=== PATIENT | female | born 1975 | race Caucasian/White ===

== ENCOUNTER 2019-10-13 05:42 | Emergency (ER) | payer OTHER, SELFPAY ==
[2019-10-13 05:50] VITALS: BP 132/70; PULSE 95; RESP 20; TEMP 36.6; O2SAT 97
--- NOTE | 2019-10-13 06:10 | ED.HA ---
HPI - Headache General Chief Complaint: Headache Stated Complaint: Headache Source: patient Mode of arrival: ambulatory Limitations: no limitations History of Present Illness HPI Narrative: This is a 44-year-old female that presents with a headache typical migraine she has history of migraines is throbbing mainly on the left frontal and posterior throbbing in nature with nausea no vomiting has been going on last 5 days. Patient has not had a migraine in quite a while, patient has a history of diabetes pretty well controlled. There is no focal findings has no blurry vision no chest pain no shortness of breath no abdominal pain no dysuria. MD elicited complaint: headache and migraine Onset (ago): day(s) Onset description: gradually Location: left and diffuse Severity: moderate Pain scale (0-10): 6 Quality & Timing: throbbing and similar to previous headaches Exacerbating factors: light and noise Relieving factors: rest and dark room Associated symptoms: nausea, photophobia and sensitivity to sound Related Data Home Medications Medication Instructions Recorded Confirmed ciprofloxacin HCl 250 mg PO BID 10/13/19 10/13/19 fluconazole 150 mg PO DAILY 10/13/19 10/13/19 levothyroxine 200 mcg PO DAILY 10/13/19 10/13/19 metformin 500 mg PO BID 10/13/19 10/13/19 Allergies Allergy/AdvReac Type Severity Reaction Status Date / Time adhesive tape Allergy Unknown RASH Verified 12/04/10 11:56 diphenhydramine Allergy Unknown Verified 11/18/10 10:28 sumatriptan Allergy Unknown Verified 11/18/10 10:28 SUMATRIPTAN SUCCINATE Allergy Severe SEVERE Uncoded 12/02/10 14:12 CHEST PAIN, RACING HEART RATE DIPHENHYDRAMINE HCL Allergy Uncoded 09/28/10 19:23 Review of Systems Review of Systems: All systems reviewed & are unremarkable except as noted in HPI and below PMFSH Past Medical History Medical History Diabetes mellitus Migraine Family History Family History Mother Family history of diabetes mellitus in first degree relative Family history of heart disease in male family member before age 55 Sibling Family history of diabetes mellitus in first degree relative Social History Social History Smoking status: Former smoker Alcohol intake: current Exam Const: General: no acute distress and alert Orientation/consciousness: patient oriented x3 HENMT: Head: normal to inspection Eyes: Conjunctivae: conjunctivae normal Pupils: Equal, round and reactive pupils present EOM: EOMs intact bilaterally Direct Ophthalmoscopy: photophobia Neck: Neck: normal visual inspection, no lymphadenopathy and no meningeal signs Chest: Chest palpation & inspection: normal inspection of the chest Resp: Effort & Inspection: normal respiratory effort Auscultation: clear to auscultation bilaterally Cardio: Rate: regular rate Rhythm: regular rhythm GI: GI Palp: Yes Soft to palpation Percussion: Yes normal to percussion : General: Yes no CVA tenderness Skin: General skin exam: normal color Rashes: no rashes Neuro: General: patient oriented x3 Extrem: General: normal to inspection Psych: Appearance: grossly normal Mental Status: mental status grossly normal Course Course Emergency Course: Toradol IM was administered along with ODT Zofran patient symptoms have improved. Advised to follow-up primary care physician if symptoms persist. Critical Care Time Critical Care Time Critical Care Time: No Discharge Plan Discharge Clinical Impression: Migraine Patient Disposition: Home, Self-Care Condition: Stable Instructions: Antibiotic Form, Migraine Headache (ED) Additional Instructions: Take medicine as prescribed and follow-up with primary care physician if symptoms persist. Prescriptions: New ondansetron HCl [Zofran] 4
[2019-10-13] MEDS: ONDANSETRON HCL ODT 4 MG TABLET PO (06:20)
[2019-10-13] MEDS: KETOROLAC (*BKC) 60 MG/2 ML VIAL IM (06:20)
== END 2019-10-13 06:40 | disposition home or self-care (01) ==
PROVIDERS: Emergency Provider Emergency Medicine; PCP Internal Medicine
DX: G43.909 Migraine, unspecified, not intractable, without status migrainosus (principal)
CPT/HCPCS: 96372; 99283; A9270; J1885

== ENCOUNTER 2020-01-21 13:25 | Inpatient (IN) | payer OTHER, SELFPAY ==
--- NOTE | ~2020-01-21 | CT_ITS ---
EXAMINATION: CT chest abdomen pelvis w con DATE: 01/22/2020 16:25 INDICATION: Shortness of breath. Chest pain. Nausea. TECHNIQUE: Computed tomography (CT) of the chest, abdomen, and pelvis was performed with 100 mL Omnip aque 350 intravenous contrast. Automated exposure control and iterative reconstruction technique were employed. The dose-length product was 1811.40 mGy-cm. COMPARISON: CT abdomen and pelvis 11/12/2010 FINDINGS: CHEST CT: There are patchy airspace and groundglass opacities in all lobes. There is mild scarring in paraspina l right lower lobe. No pleural effusion. The heart size is normal. No pericardial effusion. ABDOMEN/PELVIS CT: The liver is normal. There are changes of cholecystectomy. There is chronic mild splenomegaly measuri ng 16.1 cm, likely secondary to obesity. The pancreas, adrenal glands, and kidneys are normal. There are no dilated loops of bowel. The appendix is normal. There are no pathologically enlarged lymph nod es. There is no free intraperitoneal fluid. There is mild thoracolumbar spondylosis. IMPRESSION: 1. Diffuse lung disease, consistent with pneumonia such as COVID-19 pneumonia. Reviewed, dictated and finalized at location A. 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
--- NOTE | ~2020-01-21 | XR_ITS ---
EXAMINATION: XR chest 1V portable DATE: 01/21/2020 14:37 INDICATION: Cough and flulike symptoms TECHNIQUE: frontal view of the chest was obtained. COMPARISON: Chest radiograph dated 02/26/2013 FINDINGS: Scattered subtle patchy bilateral airspace opacities. No pleural effusion or pneumothorax. Prominent hypertrophic change at the bilateral anterior first ribs. The cardiomediastinal silhouette is normal. There are bridging osteophytes at multiple levels in the spine, consistent with diffuse idiopathic s keletal hyperostosis (DISH). IMPRESSION: 1. Bilateral scattered subtle patchy airspace opacities which is concerning for pneumonia with differ ential including less likely pulmonary edema or atelectasis. Reviewed, dictated and finalized at location . AGE HANDLING SUPERVISOR IMPRESSION: 1. Bilateral scattered subtle patchy airspace opacities which is concerning for pneumonia with differential including less likely pulmonary edema or atelectas is.
[2020-01-21 13:50] VITALS: BP 115/81; PULSE 110; RESP 22; TEMP 36.4; O2SAT 95
[2020-01-21 14:30] LABS: Influenza Control Valid (Valid)
[2020-01-21 14:31] LABS: SARS-CoV-2 Ag Negative (Negative)
[2020-01-21 14:49] LABS: Hematocrit 43.5 % (35.0-49.0); Hemoglobin 14.6 g/dL (12.0-15.0); Mean Corpuscular HGB Conc 33.6 g/dL (32.0-36.0); Mean Corpuscular Hemoglobin 31.5 pg (27.0-31.0); Mean Corpuscular Volume 93.8 fL (78.0-102.0); Platelet Count Result 210 K/mm3 (150-420); Red Blood Count 4.64 M/mm3 (4.20-5.40); Red Cell Distribution Width 12.1 % (11.6-14.4); White Blood Count 4.5 K/mm3 (4.8-10.8)
[2020-01-21 15:00] LABS: D Dimer 0.29 mg/L (0.19-0.50); Prothrombin Time 10.4 Seconds (9.64-11.0)
--- NOTE | 2020-01-21 15:01 | ED.WEAKNESS ---
HPI - Weakness General Chief complaint: Weakness Stated complaint: 44YO female w/ 1 week h.o facial congestion, associated w/ cough, SOB, bodyaches, weakness. Has been drinking lots of fluids but still can't seem to get better. Here for evaluation. Related Data Home Medications Medication Instructions Recorded Confirmed levothyroxine 200 mcg PO DAILY 10/13/19 01/21/20 medroxyprogesterone 150 mg IM [id number] 01/21/20 01/21/20 Allergies Allergy/AdvReac Type Severity Reaction Status Date / Time adhesive tape Allergy Unknown RASH Verified 12/04/10 11:56 diphenhydramine Allergy Unknown Verified 11/18/10 10:28 sumatriptan Allergy Unknown Verified 11/18/10 10:28 SUMATRIPTAN SUCCINATE Allergy Severe SEVERE Uncoded 12/02/10 14:12 CHEST PAIN, RACING HEART RATE DIPHENHYDRAMINE HCL Allergy Uncoded 09/28/10 19:23 Review of Systems Constitutional: Constitutional: Reports fatigue and Reports weakness Eyes: Eyes: Reports no additional eye complaints ENT: Reports nasal congestion Cardiovascular: Cardiovascular: Reports no additional cardiovascular complaints Respiratory: Respiratory: Reports cough and Reports dyspnea Gastrointestinal: Gastrointestinal: Denies constipation, Denies diarrhea, Reports nausea and Denies vomiting Genitourinary: Genitourinary: Reports no additional female genitourinary complaints Musculoskeletal: Musculoskeletal: Reports myalgias Integumentary/Breasts: Skin/Breast: Reports system reviewed and no additional complaints, except as docu Neurologic: Reports system reviewed and no additional complaints, except as documented Psychiatric: Psychiatric: Reports no additional psychiatric complaints Endocrine: Endocrine: Reports no additional endocrine complaints Hematologic/Lymphatic: Hematologic/Lymphatic: Reports no additional hematologic/lymphatic complaints Allergic/Immunologic: Allergic/Immunologic: Reports no additional allergic/immunologic complaints [facility] Past Medical History Medical History Diabetes mellitus Hypothyroidism Migraine Family History Family History Mother Family history of diabetes mellitus in first degree relative Family history of heart disease in male family member before age 55 Sibling Family history of diabetes mellitus in first degree relative Social History Social History Smoking status: Former smoker Alcohol intake: current Exam Const: General: no acute distress and ill appearing Nutritional Appearance: obese Orientation/consciousness: patient oriented x3 HENMT: Head: normal to inspection General nose exam: Normal nares present Face and sinus: sinus tenderness Mouth: Yes moist mucous membranes Throat: posterior oropharynx normal Eyes: Conjunctivae: conjunctivae normal Pupils: Equal, round and reactive pupils present Neck: Neck: normal visual inspection and no lymphadenopathy Chest: Chest palpation & inspection: normal inspection of the chest Resp: Effort & Inspection: normal respiratory effort Auscultation: clear to auscultation bilaterally Cardio: Rate: regular rate Rhythm: regular rhythm GI: Inspection: non-distended GI Palp: Yes Soft to palpation, No Tenderness to palpation present (GI), No Guarding due to palpation present (GI) and No Rigid due to palpation Percussion: Yes normal to percussion Auscultation: normal bowel sounds : General: Yes no CVA tenderness Back/Spine/Pelvis: Back: no CVA tenderness Skin: General skin exam: normal color Rashes: no rashes Wounds: no wounds Neuro: General: patient oriented x3, moves all extremities, no meningeal signs, no focal motor deficits and CN's II-XI intact bilaterally Cranial nerves: Yes Nystagmus not present Speech: normal speech and Abnormal speech present Gait exam (Neuro): Normal gait presen
[2020-01-21 15:13] LABS: Alanine Aminotransferase 24 U/L (14-59); Albumin Level 3.2 g/dL (3.4-5.0); Alkaline Phosphatase 140 U/L (46-116); Anion Gap 12 mmol/L (8-16); Aspartate Amino Transferase 21 U/L (15-37); Blood Urea Nitrogen 10 mg/dL (7-18); Calcium 8.5 mg/dL (8.5-10.1); Carbon Dioxide 23 mmol/L (21-32); Chloride 101 mmol/L (98-108); Estimated CRCL calculation 87 ml/min; Estimated Glomerular Filt Rate > 60; Ferritin 352 ng/mL (8-252); Glucose 235 mg/dL (70-99); Iron 27 ug/dL (50-170); Osmolality Calculated 289 mOsm/kg (285-295); Percent Iron Saturation 9 % (12-57); Potassium 3.8 mmol/L (3.5-5.1); Sodium 136 mmol/L (136-145); Total Protein 7.8 g/dL (6.4-8.2)
[2020-01-21 15:17] LABS: Neutrophils Percent Manual 65 % (46-73)
[2020-01-21 15:18] LABS: Band Neutrophils Percent 3 % (0-6); Basophils Percent Manual 0 % (0-1); Eosinophils Percent Manual 0 % (1-6); Lymphocytes Absolute Manual 1.26 K/mm3 (1.1-4.5); Lymphocytes Percent Manual 28 % (18-44); Metamyelocytes Percent 1 %; Monocytes Absolute Manual 0.13 K/mm3 (0.1-0.90); Monocytes Percent Manual 3 % (3-9); Myelocytes Percent 0 %; Neutrophils Absolute Manual 2.86 K/mm3 (1.7-7.2); Platelet Estimate Adequate (Adequate); Promyelocytes Percent 0 %; Total Cells Counted 100
[2020-01-21] MEDS: KETOROLAC 30 MG/ML VIAL (*BKC) IV PUSH (15:18)
[2020-01-21 15:22] VITALS: BP 122/79; PULSE 96; RESP 18; O2SAT 97
[2020-01-21 16:00] VITALS: BP 106/70; PULSE 64; RESP 16; TEMP 36.7; O2SAT 97
[2020-01-21 16:00] LABS: Partial Thromboplastin Time 24.4 SEC (22.3-31.6)
[2020-01-21 16:07] LABS: Lactic Acid Reflex 1.3 mmol/L (0.4-2.0)
--- NOTE | 2020-01-21 17:07 | ADMGEN ---
This patient, Nati Jordan, was admitted to 2nd Floor Room 204-1. Patient/family oriented to hospital policies and general routines including ID bracelet, bed and alarms, visiting hours, pain management, procedures, bathroom and other care routines, personal items, smoking policy, room service/diet, and visiting hours. Information on how to activate the Rapid Response Team has been discussed. Patient/Family are encouraged to report perceived risks to care and to ask questions if they do not understand what they are told or what they should do. Patient admitted with Community Acquired Pneumonia. Patient begin with cold like s/sx this past week. Today just felt bad and came to ER. After work up admitted to floor. On levaquin 750 Mg IV antibiotic. Patient reports less achy after receiving Toradol in ER and they started IV antibiotic. Just wants to sleep at this time once admission is completed.
[2020-01-21 17:13] VITALS: BMI 43.1
[2020-01-21] MEDS: IBUPROFEN 400 MG TABLET PO (19:22)
--- NOTE | 2020-01-21 21:02 | PC.NURSE ---
MD notified that patient c/o leg pain and ibuprofen is not eliminating pain. New order for Tramadol prn, ACHS accuchecks with low dose SSI, Incetive Spirometer.
[2020-01-21] MEDS: traMADol HCL (*CRX) 50 MG TABLET PO (21:29)
[2020-01-21 21:40] LABS: Glucose Point of Care 184 (65-105)
[2020-01-22] VITALS (7 sets, daily range): BP systolic 109–134; BP diastolic 72–81; PULSE 90–129; RESP 16–20; TEMP 36.6–38.6; O2SAT 95–96
[2020-01-22] MEDS: ONDANSETRON INJ 4 MG/2 ML VIAL IV PUSH ×2 (05:38→17:39)
[2020-01-22] MEDS: traMADol HCL (*CRX) 50 MG TABLET PO ×2 (05:38→17:38)
[2020-01-22 06:01] LABS: Hematocrit 39.7 % (35.0-49.0); Hemoglobin 13.5 g/dL (12.0-15.0); Mean Corpuscular Volume 94.1 fL (78.0-102.0); Platelet Count Result 195 K/mm3 (150-420); Red Blood Count 4.22 M/mm3 (4.20-5.40); Red Cell Distribution Width 12.3 % (11.6-14.4); White Blood Count 4.4 K/mm3 (4.8-10.8)
[2020-01-22 06:19] LABS: Alanine Aminotransferase 25 U/L (14-59); Albumin Level 2.9 g/dL (3.4-5.0); Alkaline Phosphatase 131 U/L (46-116); Anion Gap 11 mmol/L (8-16); Aspartate Amino Transferase 22 U/L (15-37); Blood Urea Nitrogen 11 mg/dL (7-18); Calcium 8.2 mg/dL (8.5-10.1); Carbon Dioxide 24 mmol/L (21-32); Chloride 100 mmol/L (98-108); Estimated CRCL calculation 94 ml/min; Estimated Glomerular Filt Rate > 60; Glucose 237 mg/dL (70-99); Osmolality Calculated 287 mOsm/kg (285-295); Potassium 3.8 mmol/L (3.5-5.1); Sodium 135 mmol/L (136-145); Total Protein 7.3 g/dL (6.4-8.2)
[2020-01-22 06:38] LABS: Band Neutrophils Percent 0 % (0-6); Lymphocytes Absolute Manual 0.96 K/mm3 (1.1-4.5); Lymphocytes Percent Manual 22 % (18-44); Monocytes Absolute Manual 0.22 K/mm3 (0.1-0.90); Monocytes Percent Manual 5 % (3-9); Myelocytes Percent 2 %; Neutrophils Absolute Manual 3.12 K/mm3 (1.7-7.2); Neutrophils Percent Manual 71 % (46-73); Platelet Estimate Adequate (Adequate); Total Cells Counted 100
--- NOTE | 2020-01-22 07:39 | PM.IMHP ---
H&P: HPI History of Present Illness Date/Time: 01/22/20 07:39 <BRANDT Henderson - Last Filed: 01/22/20 14:46> Chief complaint: PNEUMONIA IRON DEF <BRANDT Henderson - Last Filed: 01/22/20 14:46> Narrative: Nati Jordan is a 44 year old female who presented to the hospital for approximately 1 week of what sounds like sinus congestion. Patient was weak had a headache pointing to her frontal and maxillary sinuses, she also had shortness of breath. Patient has a history of diabetes for which she was given metformin but was unable to tolerate that and currently she is not taking anything for diabetes. She also has iron deficiency anemia for which she was given ferrous sulfate but was unable tolerate that due to upset stomach. Patient has tried on a different type of diabetic medication though at that time she was unable to afford it. She now has new insurance and hope that on discharge we can get her on a medication that is not expensive. <BRANDT Henderson - Last Filed: 01/22/20 14:46> Review of Systems Constitutional: Constitutional: Reports headache(s), Reports poor appetite (Does not feel like eating but able to tolerate fluids) and Reports weakness <BRANDT Henderson - Last Filed: 01/22/20 14:46> Cardiovascular: Cardiovascular: Reports chest pain (Fall performing 6 minutes walk test in anticipation for discharge), Reports dyspnea and Reports dyspnea on exertion <BRANDT Henderson - Last Filed: 01/22/20 14:46> Comments: Patient states he only time she is able to breathe is when she is lying down <BRANDT Henderson - Last Filed: 01/22/20 14:46> Respiratory: Respiratory: Reports cough, Reports pain with cough, Reports dyspnea and Reports dyspnea on exertion <BRANDT Henderson - Last Filed: 01/22/20 14:46> Gastrointestinal: Gastrointestinal: Reports no additional gastrointestinal complaints <BRANDT Henderson - Last Filed: 01/22/20 14:46> Genitourinary: Comments: Admit to taking Diflucan weekly for recurring yeast infections <BRANDT Henderson - Last Filed: 01/22/20 14:46> Musculoskeletal: Musculoskeletal: Reports muscle weakness <BRANDT Henderson - Last Filed: 01/22/20 14:46> Neurologic: Reports dizziness (While performing 6 minutes walk test) and Reports headache(s) <BRANDT Henderson - Last Filed: 01/22/20 14:46> Psychiatric: Psychiatric: Reports no additional psychiatric complaints <BRANDT Henderson - Last Filed: 01/22/20 14:46> Endocrine: Endocrine: Reports as per HPI <BRANDT Henderson - Last Filed: 01/22/20 14:46> PMFSH Past Medical History Medical History: Medical History Diabetes mellitus Hypothyroidism Migraine <RBANDT Henderson - Last Filed: 01/22/20 14:46> Family History Family History: Family History Mother Family history of diabetes mellitus in first degree relative Family history of heart disease in male family member before age 55 Sibling Family history of diabetes mellitus in first degree relative <BRANDT Henderson - Last Filed: 01/22/20 14:46> Social History Social History: Social History Smoking status: Former smoker Tobacco type: cigarettes Second hand tobacco smoke exposure: Yes Alcohol intake: current Substance use: unknown Substance use type: does not use Gender identity (if verbalized by the patient): Female Sexual Orientation (if Verbalized by the Patient): Straight or Heterosexual Spiritual care concerns: No <BRANDT Henderson - Last Filed: 01/22/20 14:46> Meds Home Medications and Allergies Home medications: Home Medications Medication Instructions Recorded Confirmed Type levothyroxine 200 mcg PO DAILY 10/13/19 01/21/20 History medroxyprogesterone 150 m
[2020-01-22 08:11] LABS: Glucose Point of Care 219 (65-105)
[2020-01-22] MEDS: ENOXAPARIN 40 MG/0.4 ML SYRINGE SUB-Q (09:13)
--- NOTE | 2020-01-22 10:52 | HOMEO2EVAL ---
Home Oxygen Evaluation RC: Home Oxygen (O2) Evaluation Start: 01/22/20 10:07 Freq: ONCE Status: Active Protocol: RPE Activity Type Activity Date Activity User E-Sign Co-Sign Detail Recorded Client Recorded Date Recorded By Document 01/22/20 10:39 [facility] [id number] 01/22/20 10:52 SJB Document 01/22/20 10:48 SJB [id number] 01/22/20 10:52 SJB 01/22/20 01/22/20 10:39 10:48 Home O2 Evaluation Test Phase Resting Exercise Oxygen Delivery Room Air Room Air Pulse Oximetry (90-100 %) 95 95 Pulse Rate (60-100 beats/min) 105 129 H Activity Tolerance Poor Rating of Perceived Dyspnea (PD) +2 Mild, Some +3 Moderate Difficulty, Difficulty, But Noticeable to Can Continue the Observer Rate of Perceived Exertion (PE) 13 Somewhat 17 Very Hard Hard Ambulation Distance (feet) 140 Home Oxygen Evaluation Comments Pt walked a total of 140 ft , stopping at 42 ft due to exhaustion . After sitting, finished walk on room air, crying. Once back to her room she complained of chest discomfort. Demetrius BRYSON and ER Dr Fernandez told about complaint. Spo2s remained normal with HRs ranging from 105 to 131 throughout. Treatment Charges O2 Evaluation
--- NOTE | 2020-01-22 10:55 | ECG_ITS ---
Measurements Intervals [place] Rate: 99 P: 9 MN: 143 QRS: -17 QRSD: 90 T: -15 QT: 348 QTc: 448 Interpretive Statements SINUS RHYTHM DELAYED PRECORDIAL R/S TRANSITION BORDERLINE T WAVE ABNORMALITY- INFERIOR LEADS BORDERLINE ECG Electronically Signed On 01-22-2020 11:33:47 PRIVACY COMPLIANCE MANAGER by Nael Bowden D.O.
[2020-01-22 12:01] LABS: Glucose Point of Care 199 (65-105)
[2020-01-22 12:32] LABS: HCO3 ABG 21.8 mmol/L (23-29); Oxygen Content ABG 19.9 %vol (16.0-22.0); Oxygen Saturation ABG 94.8 % (95-97); Oxyhemoglobin 93.8 % (94-100); PCO2 ABG 28.5 mmHg (35-45); PO2 ABG 65.5 mmHg (80-90); Total Hemoglobin 15.1 g/dL
[2020-01-22 12:33] LABS: Device ROOM AIR; Modified Allen's Test Pass; Site Drawn RIGHT RADIAL
[2020-01-22] MEDS: guaiFENesin/DEXTROMETHORPHAN 5 ML UDC 10 ML PO ×2 (13:16→17:38)
[2020-01-22 15:02] LABS: Troponin I < 0.02 ng/mL (0.00-0.056)
[2020-01-22 16:14] LABS: D Dimer 0.25 mg/L (0.19-0.50)
[2020-01-22 16:21] LABS: BNP < 5.0 pg/mL (0-100)
[2020-01-22] MEDS: POLYSACCHARIDE IRON COMPLEX 150 MG CAPSULE PO (17:37)
[2020-01-22] MEDS: ACETAMINOPHEN 325 MG TABLET 650 MG PO (17:38)
[2020-01-22 18:02] LABS: Glucose Point of Care 210 (65-105)
--- NOTE | 2020-01-22 18:38 | PM.IMPN ---
Progress Note: A&P Assessment and Plan (1) Hypoxemia: Code(s): R09.02 - Hypoxemia Status: Acute Assessment and Plan: I checked a D-dimer which was still normal. The BNP also normal. With patient's ongoing severe dyspnea on exertion I decided to do CT scan of chest abdomen pelvis. Results came back with ground-glass appearance to lungs consistent with pneumonia such as COVID-19. Patient will be tested with send a PCR testing put in isolation till results have returned. Also will check a CRP. Subjective Date/time seen: 01/22/20 18:38 Objective Data Vital Signs Vital Signs: Vital Signs - 24 hr 01/22/20 00:00 01/22/20 08:00 01/22/20 10:39 Temperature 36.6 C 36.8 C Pulse Rate 92 94 Respiratory Rate 18 16 Blood Pressure 109/72 119/80 Pulse Oximetry 95 96 95 01/22/20 10:48 01/22/20 16:00 01/22/20 17:38 Temperature 38.6 C H 38.6 C H Pulse Rate 129 H 94 Respiratory Rate 20 Blood Pressure 121/81 Pulse Oximetry 95 95 Intake/Output Intake/Output: Intake & Output 01/19/20 01/20/20 01/21/20 01/22/20 23:59 23:59 23:59 23:59 Intake Total 280 2080 Balance 280 2080 Meds/Results Medications: Active Medications Generic Name Dose Route Start Last Admin Trade Name Freq PRN Reason Stop Dose Admin Acetaminophen 650 mg 01/21/20 15:48 01/22/20 17:38 Acetaminophen 325 Mg Tablet PO 650 mg Q4H PRN Administration Mild Pain (1-3) or Fever Dextrose 12.5 gm 01/21/20 20:54 Dextrose 50% 25 Gm/50 Ml Syringe IV PUSH PRN PRN Hypoglycemia Protocol Docusate Sodium 100 mg 01/21/20 17:00 01/22/20 17:38 Docusate Sodium 100 Mg Capsule PO Not Given BID VIDYA Enoxaparin Sodium 40 mg 01/22/20 09:00 01/22/20 09:13 Enoxaparin 40 Mg/0.4 Ml Syringe SUB-Q 40 mg DAILY VIDYA Administration Glucagon 1 mg 01/21/20 20:54 Glucagon For Inj 1 Mg Vial IM PRN PRN Hypoglycemia Protocol Glucose 15 gm 11/22/20 20:54 Glucose Oral Gel 15 Gm Of Glucse In 37.5 Gm Tube PO PRN PRN Hypoglycemia Protocol Guaifenesin/Dextromethorphan 10 ml 01/22/20 06:00 01/22/20 17:38 Guaifenesin/Dextromethorphan 5 Ml Udc PO 10 ml Q6HR VIDYA Administration Dextrose 1,000 mls @ 100 mls/hr 01/21/20 20:54 Dextrose 5% 1,000 Ml IVPB PRN PRN Hypoglycemia Protocol Levofloxacin/Dextrose 750 mg in 150 mls @ 100 mls/hr 01/22/20 15:00 01/22/20 17:37 Levaquin 750 Mg/D5w 150 Ml IVPB 100 mls/hr Q24H VIDYA Administration Ibuprofen 400 mg 01/21/20 15:48 01/21/20 19:22 Ibuprofen 400 Mg Tablet PO 400 mg Q6H PRN Administration Mild Pain (1-3) or Fever Insulin Human Lispro 0 units 01/22/20 08:00 01/22/20 18:13 Insulin Human Lispro (*Bkc) 100 Units/Ml SUB-Q Not Given TIDWM [facility] Protocol Levothyroxine Sodium 200 mcg 01/23/20 06:30 Levothyroxine Sodium 100 Mcg Tablet PO DAILY@0630 [facility] Morphine Sulfate 2 mg 01/21/20 15:48 Morphine Sulfate (*Crx) 2 Mg/Ml Inj IV PUSH Q4H PRN Pain Rated 7-10 Ondansetron HCl 4 mg 01/21/20 15:48 01/22/20 17:39 Ondansetron Inj 4 Mg/2 Ml Vial IV PUSH 4 mg Q6H PRN Administration Nausea And Vomiting Pioglitazone HCl 7.5 mg 01/23/20 09:00 Pioglitazone Hcl 15 Mg Tab PO QAM [facility] Polysaccharide Iron Complex 150 mg 01/23/20 08:00 Polysaccharide Iron Complex 150 Mg Capsule PO DAILY@0800 [facility] Tramadol HCl 50 mg 01/21/20 20:50 01/22/20 17:38 Tramadol Hcl (*Crx) 50 Mg Tablet PO 50 mg Q6H PRN Administration Pain Rated 4-6 Radiology Results: ITS Impressions Chest X-Ray 01/21/20 14:55 IMPRESSION: 1. Bilateral scattered subtle patchy airspace opacities which is concerning for pneumonia with differential including less likely pulmonary edema or atelectasis. Chest/Abdomen/Pelvis CT 01/22/20 16:27 IMPRESSION: 1. Diffuse lung disease, consistent with pneumonia such as COVID-19 pneum
[2020-01-22 20:29] LABS: CRP 4.7 mg/dL (0.0-0.9); Troponin I < 0.02 ng/mL (0.00-0.056)
--- NOTE | 2020-01-22 21:44 | PC.NURSE ---
notified of evening lab results. No new orders at this time.
[2020-01-22 22:10] LABS: Glucose Point of Care 169 (65-105)
[2020-01-23] VITALS: BP 94/60; PULSE 79; RESP 16; TEMP 36.4; O2SAT 95
[2020-01-23 03:49] VITALS: PULSE 84
[2020-01-23 05:45] LABS: Hematocrit 40.1 % (35.0-49.0); Hemoglobin 13.6 g/dL (12.0-15.0); Mean Corpuscular HGB Conc 33.9 g/dL (32.0-36.0); Mean Corpuscular Volume 94.4 fL (78.0-102.0); Mean Platelet Volume 9.8 fl (9.2-11.8); Platelet Count Result 192 K/mm3 (150-420); Red Blood Count 4.25 M/mm3 (4.20-5.40); Red Cell Distribution Width 12.2 % (11.6-14.4); White Blood Count 3.7 K/mm3 (4.8-10.8)
[2020-01-23] MEDS: guaiFENesin/DEXTROMETHORPHAN 5 ML UDC 10 ML PO ×2 (06:04→12:51)
[2020-01-23] MEDS: LEVOTHYROXINE SODIUM 100 MCG TABLET 200 MCG PO (06:04)
[2020-01-23 06:08] LABS: Alanine Aminotransferase 28 U/L (14-59); Albumin Level 2.7 g/dL (3.4-5.0); Alkaline Phosphatase 126 U/L (46-116); Anion Gap 9 mmol/L (8-16); Aspartate Amino Transferase 24 U/L (15-37); Bilirubin,Total 1.1 mg/dL (0.00-1.00); Blood Urea Nitrogen 11 mg/dL (7-18); Calcium 8.3 mg/dL (8.5-10.1); Carbon Dioxide 25 mmol/L (21-32); Chloride 101 mmol/L (98-108); Estimated CRCL calculation 105 ml/min; Estimated Glomerular Filt Rate > 60; Glucose 190 mg/dL (70-99); Osmolality Calculated 284 mOsm/kg (285-295); Potassium 3.7 mmol/L (3.5-5.1); Sodium 135 mmol/L (136-145); Total Protein 7.1 g/dL (6.4-8.2); Troponin I < 0.02 ng/mL (0.00-0.056)
--- NOTE | 2020-01-23 06:25 | PC.NURSE ---
Asked patient if she has urinated during the night and she said that she hasn't gone to the bathroom since moving to room 210. Asked if she could go to the bathroom and she answered yes but said it's too much of a hassle with dragging the heart monitor around. Explained that we have gowns just for patient's with the monitors and patient motioned that she didn't want it. Told her to not wait very long until she goes and she agreed. Asked if she wanted me to walk with her to the bathroom and she said no. Asked patient if she's starting to feel any better and she said yes. Water pitcher refreshed. Call light in reach.
[2020-01-23 07:39] VITALS: BP 125/84; PULSE 85; RESP 20; TEMP 37.2; O2SAT 92
[2020-01-23 07:39] LABS: Glucose Point of Care 202 (65-105)
[2020-01-23 07:40] VITALS: PULSE 89
[2020-01-23] MEDS: ENOXAPARIN 40 MG/0.4 ML SYRINGE SUB-Q (08:10)
[2020-01-23] MEDS: PIOGLITAZONE HCL 15 MG TAB 7.5 MG PO (08:11)
[2020-01-23] MEDS: DOCUSATE SODIUM 100 MG CAPSULE PO (08:11)
[2020-01-23] MEDS: POLYSACCHARIDE IRON COMPLEX 150 MG CAPSULE PO (08:11)
[2020-01-23] MEDS: ACETAMINOPHEN 325 MG TABLET 650 MG PO (08:11)
--- NOTE | 2020-01-23 11:57 | PM.DS ---
DS: Admitting Diagnosis Admitting Diagnosis Admitting Diagnosis: PNEUMONIA IRON DEF DS: Discharge Diagnosis Discharge Diagnosis (1) Community acquired pneumonia: Qualifiers: Laterality: unspecified laterality Qualified Code(s): J18.9 - Pneumonia, unspecified organism Code(s): J18.9 - Pneumonia, unspecified organism Status: Acute Assessment and Plan: 01/22/2020 ABG obtained on 2nd attempt for 6 minutes walk test: pH 7.5, pCO2 28.5, PO2 65.5, bicarb 21.8, oxygen 94.8% on room air with increased work of breathing and report of chest pain by the patient 5/10 lower right sternum, EKG sinus rhythm, troponin pending, patient hypoxic when up walking, patient was unable to make more than 20 ft distance from her room to the door before becoming short of breath during the 6 minutes walk test, continue with Levaquin day 2 01/23/2020 Nurse Kamini and myself performed a 6 minutes walk test with the patient with similar results to what happened yesterday, patient started her walk at a heart rate of 105 after traveling 10 ft her heart rate went up to 126 after traveling another 10 ft she began to have labored breathing pushing 30 respirations per minute during the next 10 ft she was putting her hand on her sternum and said she is having pain with breathing she then took a pause and appeared to be off balance then we walked back 10 ft to her bed and she sat down, I explained to her that this is similar to our findings yesterday and that would benefit her to stay because of her labor breathing and concern for her going home having some lightheadedness or dizziness with potential of passing out and causing physical bodily harm or trauma to her head, patient states she wanted to go home to be more comfortable and signed out AMA, I will be sending her home on Levaquin for her to brain picker at her pharmacy (2) Iron deficiency: Code(s): E61.1 - Iron deficiency Status: Acute Assessment and Plan: 01/22/2020 Will trial Niferex to see if Pt tolerates, H/H currently stable 01/23/2020 will continue the neb for recs as it seems the patient is tolerating this medication (3) Hypothyroidism: Code(s): E03.9 - Hypothyroidism, unspecified Status: Acute Assessment and Plan: 01/22/2020 continue with home regiment 200 mcg Levothyroxine 01/23/2020 no changes continue on discharge (4) Diabetes mellitus: Qualifiers: Diabetes mellitus complication status: without complication Diabetes mellitus mcfp insulin use: without mcfp use Diabetes mellitus type: type 2 Qualified Code(s): E11.9 - Type 2 diabetes mellitus without complications Code(s): E11.9 - Type 2 diabetes mellitus without complications Status: Acute Assessment and Plan: 01/22/2020 patient is on sliding scale, starting Actos 7.5 daily, glucose monitoring ACHS, consistent carb diet the patient does not have a good appetite at this time 01/23/2020 will order Actos for patient to brain picker at her pharmacy (5) Hypoxemia: Code(s): R09.02 - Hypoxemia Status: Acute Assessment and Plan: 01/22/2020 patient became short of breath while performing 6 minutes walk and developed right lower sternal chest pain, supplemental oxygen as needed for maintaining O2 saturation 92% or better, incentive spirometer, ABG as noted above during 6 minutes walk test 01/23/2020 SpO2 maintained 95% or better during this walk test however patient was short of breath increased work of breathing otherwise labored breathing and at 1 point became lightheaded during this walk test as noted above under CAP (6) Chest pain: Code(s): R07.9 - Chest pain, unspecified Status: Acute Assessment and Plan: 01/22/2020 during 6 minutes walk test, EKG normal sinus rhythm, serial troponin pending at this time, pain was a 5/10 right lower sternal border, relieved with rest, have patient on a sustainability coordinator currently showing sinus rhythm with PACs
--- NOTE | 2020-01-23 12:00 | PC.NURSE ---
Patient states she wants to leave. She needs her own space. [employer] Demetrius spoke with patient. Patient signed AMA paperwork refused accu check. Wanted telemetry and IV removed.
--- NOTE | 2020-01-23 13:09 | PC.NURSE ---
Patient transported to vehicle via wheelchair. Patient signed out AMA
[2020-01-24 01:59] LABS: SARS-CoV-2 RNA PCR Positive
--- NOTE | 2020-01-29 13:19 | PC.NURSE ---
No instructions given, pt left AMA, no discharge call back performed.
== END 2020-01-23 13:20 | disposition left against medical advice (07) | DRG 177 ==
LOC: CHSED 15:47 → CHS2ND 01-22 07:46
PROVIDERS: Emergency Medicine; Nurse Practitioner Family; Admitting Provider Family Medicine; Emergency Provider Family Medicine; PCP Internal Medicine; Visit Provider Family Medicine
DX: J18.9 Pneumonia, unspecified organism (principal); U07.1 COVID-19; J12.89 Other viral pneumonia; R09.02 Hypoxemia; E61.1 Iron deficiency; Z20.828 Contact with and (suspected) exposure to other viral communicable diseases; D50.9 Iron deficiency anemia, unspecified; E11.9 Type 2 diabetes mellitus without complications; E03.9 Hypothyroidism, unspecified; R07.9 Chest pain, unspecified; Z87.891 Personal history of nicotine dependence
CPT/HCPCS: 36415; 36600; 71045; 71260; 74177; 80053; 82728; 82805; 83540; 83550; 83605; 83880; 84484; 85025; 85027; 85380; 85610; 85730; 86140; 87040; 87081; 87426; 87635; 87804; 87880; 93005; 94618; 96365; 96375; 99283; 99285; A9270; C9803; J1650; J1815; J1885; J1956; J2405; Q9965; U0003

== ENCOUNTER 2020-12-16 22:14 | Observation (INO) | payer BC, SELFPAY ==
[2020-12-16] VITALS (8 sets, daily range): BP systolic 119; BP diastolic 89; PULSE 90–96; RESP 19–27; TEMP 36.2; O2SAT 99–100
--- NOTE | ~2020-12-16 | NM_ITS ---
EXAMINATION: NM stress w perf spect multi DATE: 12/17/2020 15:19 INDICATION: Chest pain TECHNIQUE: Rest images were obtained following intravenous administration of 10.8 mCi Tc99m tetrofosm in (Myoview). The patient performed an exercise activity. At peak exercise, 30.19 mCi Tc99m tetrofosm in (Myoview) was administered intravenously, and stress images were obtained. Data was reconstructed into short axis and horizontal and vertical long axis SPECT images. Gated SPECT images were also obta ined. COMPARISON: None. FINDINGS: There is normal left ventricular perfusion without definite evidence of reversible or fixed perfusion abnormality to suggest ischemia or infarction. There is normal left ventricular chamber size, wall motion and ejection fraction. Left ventricular ejection fraction measures >70%. IMPRESSION: 1. Normal myocardial perfusion at rest and during stress. 2. Left ventricular ejection fraction measuring >70%. Reviewed, dictated and finalized at location A.
--- NOTE | ~2020-12-16 | XR_ITS ---
EXAMINATION: XR chest 2V DATE: 12/16/2020 22:52 INDICATION: Shortness of breath TECHNIQUE: AP and lateral views of the chest are obtained. COMPARISON: 01/21/2020 FINDINGS: The lungs are free of acute opacities. There is no pleural effusion or pneumothorax. The ca rdiomediastinal silhouette is normal. There is moderate thoracic spondylosis. IMPRESSION: 1. No acute cardiopulmonary abnormality. Reviewed, dictated and finalized at location A.
--- NOTE | 2020-12-16 22:16 | ECG_ITS ---
Measurements Intervals [place] Rate: 101 P: 15 SD: 149 QRS: -17 QRSD: 99 T: 1 QT: 346 QTc: 449 Interpretive Statements SINUS TACHYCARDIA BORDERLINE R WAVE PROGRESSION, ANTERIOR LEADS BORDERLINE T WAVE ABNORMALITY- INFERIOR LEADS BASELINE ARTIFACT- I, III, V3 BORDERLINE ECG Electronically Signed On 12-17-2020 6:05:13 CDT by Nael Bowden D.O.
--- NOTE | 2020-12-16 22:42 | ED.GENADULT ---
HPI - General Adult General Chief complaint: Chest Pain Stated complaint: Chest pain Time Seen by Provider: 12/16/20 22:27 Source: patient History of Present Illness HPI narrative: Patient is a 45 y/o female complaining of midsternal chest pain starting about 1 hour ago. She describes her chest pain as a tightness. She rates her pain as 6/10. There is pain radiation to her neck. She feels like she can't get a good breath. Related Data Home Medications Medication Instructions Recorded Confirmed levothyroxine 200 mcg PO DAILY 10/13/19 01/21/20 medroxyprogesterone 150 mg IM [id number] 01/21/20 01/21/20 Allergies Allergy/AdvReac Type Severity Reaction Status Date / Time adhesive tape Allergy Unknown RASH Verified 12/04/10 11:56 diphenhydramine Allergy Unknown Verified 11/18/10 10:28 sumatriptan Allergy Unknown Verified 11/18/10 10:28 SUMATRIPTAN SUCCINATE Allergy Severe SEVERE Uncoded 12/02/10 14:12 CHEST PAIN, RACING HEART RATE DIPHENHYDRAMINE HCL Allergy Uncoded 09/28/10 19:23 Review of Systems Constitutional: Constitutional: Denies chills, Denies fever(s), Denies headache(s) and Denies weakness Eyes: Eyes: Denies blurry vision ENT: Denies headache(s) and Denies neck pain Cardiovascular: Cardiovascular: Reports chest pain and Reports dyspnea Respiratory: Respiratory: Denies cough and Reports dyspnea Gastrointestinal: Gastrointestinal: Denies abdominal pain, Denies diarrhea, Denies nausea and Denies vomiting Genitourinary: Genitourinary: Denies hematuria and Denies dysuria Musculoskeletal: Musculoskeletal: Denies back pain and Denies neck pain Neurologic: Denies headache(s) and Denies weakness [facility] Past Medical History Medical History Diabetes mellitus Hypothyroidism Migraine Family History Family History Mother Family history of diabetes mellitus in first degree relative Family history of heart disease in male family member before age 55 Sibling Family history of diabetes mellitus in first degree relative Social History Social History Smoking status: Former smoker Tobacco type: cigarettes Second hand tobacco smoke exposure: Yes Alcohol intake: current Substance use: unknown Substance use type: does not use Gender identity (if verbalized by the patient): Female Sexual Orientation (if Verbalized by the Patient): Straight or Heterosexual Spiritual care concerns: No Exam Const: General: no acute distress and well developed Orientation/consciousness: oriented to person, oriented to place, oriented to time and patient oriented x3 HENMT: Head: normocephalic Ears: external ears normal General nose exam: Normal external nose present Eyes: General: appearance normal, both eyes and all related structures Conjunctivae: conjunctivae normal Neck: Neck: normal visual inspection and full ROM Chest: Chest palpation & inspection: normal inspection of the chest and no tenderness Resp: Effort & Inspection: normal respiratory effort Auscultation: clear to auscultation bilaterally Cardio: Rate: regular rate Rhythm: regular rhythm GI: GI Palp: No abdominal tenderness and Yes Soft to palpation Skin: General skin exam: normal color and turgor normal Neuro: General: oriented to person, oriented to place, oriented to time and patient oriented x3 Cognition (Neuro): normal cognition Extrem: General: normal to inspection, full ROM and no pedal edema Psych: Appearance: grossly normal Mental Status: mental status grossly normal Affect: Anxious affect present Course Reevaluation(s) Reevaluation #1: Rechecked. Patient still has chest discomfort. Date: 12/17/20 Time: 00:32 Consultations Consultation #1: Discussed with Dr. Espinosa, who agrees to admit. Date: 12/17/20 Time: 00:38 Vital Signs Vital signs: Vi
[2020-12-16 23:01] LABS: Basophils Absolute Auto 0.1 K/mm3 (0.0-0.1); Basophils Percent Auto 0.8 % (0.2-1.2); Eosinophils Absolute Auto 0.2 K/mm3 (0-0.3); Eosinophils Percent Auto 1.7 % (0-4.4); Hematocrit 42.9 % (37.0-47.0); Hemoglobin 15.1 g/dL (12.0-15.0); Immature Granulocyte Absolute 0.23 K/mm3 (0.00-0.031); Immature Granulocyte Percent A 2.4 % (0-0.5); Lymphocytes Absolute Auto 3.89 K/mm3 (0.9-3.2); Lymphocytes Percent Auto 40.4 % (18.3-44.2); Mean Corpuscular HGB Conc 35.2 g/dl (32-36); Mean Corpuscular Hemoglobin 33.5 pg (26-34); Mean Corpuscular Volume 95.1 fl (80-100); Mean Platelet Volume 10.1 fl (7.4-10.4); Monocytes Absolute Auto 0.7 K/mm3 (0.1-0.6); Monocytes Percent Auto 7.2 % (2.6-8.5); Neutrophils Absolute Auto 4.6 K/mm3 (1.3-6.7); Neutrophils Percent Auto 47.5 % (45.5-73.1); Platelet Count Result 252 k/mm3 (150-375); Red Blood Count 4.51 M/mm3 (4.2-5.4); Red Cell Distribution Width 13.3 % (11.5-14.5); White Blood Count 9.6 K/mm3 (4.5-10.0)
[2020-12-16 23:12] LABS: Anion Gap 12 mmol/L (8-16); Blood Urea Nitrogen 11 mg/dL (7-17); Calcium 9.5 mg/dL (8.4-10.2); Carbon Dioxide 21 mmol/L (22-30); Chloride 101 mmol/L (98-107); Estimated CRCL calculation 105 ml/min; Estimated Glomerular Filt Rate > 60; Glucose 254 mg/dL (65-110); Potassium 3.6 mmol/L (3.4-5.0); Sodium 134 mmol/L (137-145)
[2020-12-16 23:16] LABS: INR 0.9; Prothrombin Time 11.9 Seconds (11.1-14.7)
[2020-12-16 23:17] LABS: Partial Thromboplastin Time 23.4 SECONDS (22.3-36.8)
[2020-12-16 23:24] LABS: Troponin I < 0.012 ng/mL (0.000-0.034)
[2020-12-17] VITALS (10 sets, daily range): BP systolic 121–147; BP diastolic 88–100; PULSE 78–100; RESP 18–20; TEMP 36–37.2; O2SAT 100; BMI 44.7
--- NOTE | 2020-12-17 | EST_ITS ---
Patient Info Name: Nati Jordan Age: 45 years : 1975 Gender: Female Ht: 66 in Wt: 277 lbs BSA: 2.49 m2 HR: 86 bpm BP: 111 / 85 mmHg Heart Rhythm: Sinus Rhythm Exam Date: 12/17/2020 2:00 PM Exam Location: [facility] Stress Patient Status: Inpatient Admit Date: 12/17/2020 Staff Ordering Physician: Hemalatha Mcfarland MD Attending Provider: Radhames Espinosa MD Exercise Technologist: Rola Otero CT Exercise Physician: Ayleen Bryson MD Exam Type: CA stress test treadmill w NM Study Info Indications R07.9 - Chest pain, unspecified A nuclear stress test was performed. Summary 1. Normal ST segment response to stress. 2. Nuclear test results to follow. 3. Poor exercise tolerance for age. Protocol: [facility]ga Stress ECG Details Stage: REST Duration (min): 8 min : 27 sec Speed (mph): 0.0 Grade (%): 0 HR (bpm): 90 SBP (mmHg): 111 DBP (mmHg): 85 METS: --- Stage: REST Duration (min): 17 min : 38 sec Speed (mph): 0.0 Grade (%): 0 HR (bpm): 94 SBP (mmHg): 111 DBP (mmHg): 85 METS: --- Stage: STAGE 1 Duration (min): 1 min : 0 sec Speed (mph): 1.7 Grade (%): 10 HR (bpm): 125 SBP (mmHg): 111 DBP (mmHg): 85 METS: --- Stage: STAGE 1 Duration (min): 2 min : 0 sec Speed (mph): 1.7 Grade (%): 10 HR (bpm): 134 SBP (mmHg): 111 DBP (mmHg): 85 METS: --- Stage: STAGE 1 Duration (min): 3 min : 0 sec Speed (mph): 1.7 Grade (%): 10 HR (bpm): 138 SBP (mmHg): 125 DBP (mmHg): 62 METS: --- Stage: STAGE 2 Duration (min): 0 min : 59 sec Speed (mph): 2.5 Grade (%): 12 HR (bpm): 151 SBP (mmHg): 125 DBP (mmHg): 62 METS: --- Stage: RECOVERY Duration (min): 1 min : 0 sec Speed (mph): 0.0 Grade (%): 0 HR (bpm): 130 SBP (mmHg): 125 DBP (mmHg): 62 METS: --- Stage: RECOVERY Duration (min): 2 min : 0 sec Speed (mph): 0.0 Grade (%): 0 HR (bpm): 105 SBP (mmHg): 125 DBP (mmHg): 62 METS: --- Stage: RECOVERY Duration (min): 3 min : 0 sec Speed (mph): 0.0 Grade (%): 0 HR (bpm): 91 SBP (mmHg): 138 DBP (mmHg): 91 METS: --- Stage: RECOVERY Duration (min): 4 min : 0 sec Speed (mph): 0.0 Grade (%): 0 HR (bpm): 99 SBP (mmHg): 138 DBP (mmHg): 91 METS: --- Stage: RECOVERY Duration (min): 4 min : 15 sec Speed (mph): 0.0 Grade (%): 0 HR (bpm): 100 SBP (mmHg): 138 DBP (mmHg): 91 METS: --- Rest HR: 94 bpm Peak HR: 151 bpm Rest Sys BP: 111 mmHg Peak Sys BP: 138 mmHg Max Pred HR: 175 bpm % Max Pred HR: 86 % Target HR: 149 bpm Max RPP: 20,838 bpm*mmHg Boyer Score: -1 Target HR Summary: Patient's target heart rate was achieved BP Response: Normal blood pressure response Termination Reason: Maximal effort/unable to continue Cardiac Symptoms: None Max ST Seg Deviation: 1 mm
[2020-12-17 01:39] LABS: Troponin I < 0.012 ng/mL (0.000-0.034)
--- NOTE | 2020-12-17 03:53 | ADMGEN ---
This patient, Nati Jordan, was admitted to IMU Room 202-. Patient/family oriented to hospital policies and general routines including ID bracelet, bed and alarms, visiting hours, pain management, procedures, bathroom and other care routines, personal items, smoking policy, room service/diet, and visiting hours. Information on how to activate the Rapid Response Team has been discussed. Patient/Family are encouraged to report perceived risks to care and to ask questions if they do not understand what they are told or what they should do. report from Alice WONG [id number] 12/17/2020
[2020-12-17 05:52] LABS: Troponin I < 0.012 ng/mL (0.000-0.034)
--- NOTE | 2020-12-17 09:09 | PM.IMHP ---
H&P: HPI History of Present Illness Date/Time: 12/17/20 09:09 [facility] Past Medical History Medical History Diabetes mellitus Hypothyroidism Migraine Family History Family History Mother Family history of diabetes mellitus in first degree relative Family history of heart disease in male family member before age 55 Sibling Family history of diabetes mellitus in first degree relative Social History Social History Smoking status: Never smoker Tobacco type: cigarettes Second hand tobacco smoke exposure: Yes Alcohol intake: current Drinks per week: 4 Substance use: never Substance use type: does not use Gender identity (if verbalized by the patient): Female Sexual Orientation (if Verbalized by the Patient): Straight or Heterosexual Spiritual care concerns: No Meds Home Medications and Allergies Home Medications Medication Instructions Recorded Confirmed Type levothyroxine 200 mcg PO DAILY 10/13/19 12/17/20 History aspirin 325 mg PO DAILY #20 tablet 01/23/20 12/17/20 Rx glimepiride 2 mg PO BID 12/17/20 12/17/20 History metformin 500 mg PO BID 12/17/20 12/17/20 History Allergies Allergy/AdvReac Type Severity Reaction Status Date / Time adhesive tape Allergy Unknown RASH Verified 12/04/10 11:56 diphenhydramine Allergy Unknown Verified 11/18/10 10:28 sumatriptan Allergy Unknown Verified 11/18/10 10:28 SUMATRIPTAN SUCCINATE Allergy Severe SEVERE Uncoded 12/02/10 14:12 CHEST PAIN, RACING HEART RATE DIPHENHYDRAMINE HCL Allergy Uncoded 09/28/10 19:23 Vital Signs Vital Signs - 24 hr 12/16/20 22:28 12/16/20 22:30 12/16/20 22:31 Temperature 97.1 F L Pulse Rate 91 92 90 Respiratory Rate 27 H 23 H Blood Pressure 119/89 Pulse Oximetry 99 100 100 12/16/20 22:32 12/16/20 22:55 12/16/20 23:06 Temperature Pulse Rate 96 94 91 Respiratory Rate 20 19 Blood Pressure 119/89 Pulse Oximetry 100 100 99 12/16/20 23:15 12/16/20 23:53 12/17/20 00:00 Temperature Pulse Rate 92 92 91 Respiratory Rate 19 Blood Pressure Pulse Oximetry 99 100 100 12/17/20 03:45 12/17/20 04:00 12/17/20 06:00 Temperature 97.8 F Pulse Rate 100 89 97 Respiratory Rate 20 Blood Pressure 147/95 H Pulse Oximetry 100 12/17/20 08:48 Temperature 98.0 F Pulse Rate 84 Respiratory Rate 20 Blood Pressure 134/88 Pulse Oximetry 100 H&P: Results Labs Labs: Short CBC 12/16/20 12/16/20 Range/Units 22:39 22:39 WBC 9.6 (4.5-10.0) K/mm3 Hgb 15.1 H (12.0-15.0) g/dL Hct 42.9 (37.0-47.0) % Plt Count 252 (150-375) k/mm3 Glucose 254 H (65-110) mg/dL BMP 12/16/20 22:39 Sodium 134 L Potassium 3.6 Chloride 101 Carbon Dioxide 21 L BUN 11 Creatinine 0.80 Glucose 254 H Calcium 9.5 Cardiac Enzymes 12/16/20 12/17/20 12/17/20 Range/Units 22:39 01:07 04:42 Troponin I < 0.012 < 0.012 < 0.012 (0.000-0.034) ng/mL
[2020-12-17 10:26] LABS: Hemoglobin A1C 8.9 % (<5.7)
--- NOTE | 2020-12-17 11:06 | PM.CNCAR ---
Assessment and Plan Assessment and plan (1) Atypical chest pain: Code(s): R07.89 - Other chest pain Status: Acute Assessment and Plan: Atypical chest pain, troponins negative, no ischemic EKG changes, though she does have some risk factors for CAD (DM ad family hx). I was wondering if she could have pericarditis (because she does have some questionable slight [place] depression on her EKG) but her D-dimer was normal, this is non positional, and not typical for pericarditis type pain. I think pericarditis is unlikely. Most likely musculoskeletal. Agree with stress test because of risk factors for CAD. Tylenol or Advil prn. (2) Diabetes mellitus: Qualifiers: Diabetes mellitus complication status: without complication Diabetes mellitus termination clerk insulin use: without termination clerk use Diabetes mellitus type: type 2 Qualified Code(s): E11.9 - Type 2 diabetes mellitus without complications Code(s): E11.9 - Type 2 diabetes mellitus without complications Status: Acute Assessment and Plan: A1C 8.9, so not at goal. (3) Family history of premature CAD: Code(s): Z82.49 - Family history of ischemic heart disease and other diseases of the circulatory system Status: Acute Assessment and Plan: Mother w/ heart disease at a young age. History of Present Illness History of Present Illness Consult date/time: 12/17/20 11:06 Reason For Visit: Chest Pain Narrative: Date of service 12/17/2020: Nati Jordan is a 45-year-old female whom we were asked to see by the hospitalist for advice and opinion regarding her chest pain, in consultation. She has a history of diabetes and a family history of premature CAD. Also history of migraines and fibromyalgia. Ms. Jordan has a long history of chest pain which has been evaluated by Sarah Agarwal/[facility] in the past with no definitive diagnosis. (Reviewed records in [facility] [place], and the only thing I could find was a stress echo in 2014 which was negative. ) She states she had a mild heart attack during a prolonged labor and delivery when she was 18 years old, not sure how that was diagnosed but they told her not to worry about it. She still has episodes of chest heaviness, wooziness, dizziness, feeling icky, and difficulty breathing off and on both with activity and at rest. She states that she has mitral valve disease that sometimes acts up and takes her breath away. Sometimes it feels like she was hit in the back by 2 x 4, and she blames this on her mitral valve disease. The patient came to the emergency room last night after 1-2 hours of substernal chest pain which radiated to the neck. She had been bowling with her , and when she stood up she got very woozy, dizzy and felt like things were spinning. She then started having chest discomfort, weakness, and her chest felt very tight with discomfort radiating to the neck and shoulders. She has some numbness and tingling of her neck and shoulders as well. She it felt hard to breathe, like there was a sandbag on her chestd like she couldn't get g. She was able to continue bowling but felt uncomfortable and not right. This seemed to be a little different than prior episodes because everything happened at once and the discomfort was more intense. There is a mild pleuritic component to it but it was non positional. The chest discomfort had improved when she got to the emergency room but she is still having some difficulty. She states ?I know there is something wrong but no one knows what,? and just wants to go home. No hypertension, smoking, fevers, connective tissue disease, high cholesterol. Review of Systems Constitutional: Constitutional: Reports weakness Eyes: Eyes: Reports no additional eye complaints E
[2020-12-17] MEDS: LEVOTHYROXINE SODIUM 100 MCG TABLET 200 MCG PO (11:52)
[2020-12-17] MEDS: ASPIRIN 325 MG TABLET PO (11:52)
[2020-12-17 12:01] LABS: Glucose Point of Care 179 mg/dl (65-105)
[2020-12-17 12:33] LABS: Barbiturate Screen Urine Negative (Negative); Benzodiazepines Screen Urine Negative (Negative)
[2020-12-17 12:35] LABS: Erythrocyte Sedimentation Rate 26 mm/hr (0-20)
[2020-12-17 12:43] LABS: Amphetamine Screen Urine Negative (Negative); Cannabinoid Screen Urine Negative (Negative); Methadone Screen Urine Negative (Negative); Opiate Screen Urine Negative (Negative); Phencyclidine Screen Urine Negative (Negative)
--- NOTE | 2020-12-17 13:09 | PC.NURSE ---
Pt to nuclear medicine for stress test.
--- NOTE | 2020-12-17 16:15 | PM.SD2 ---
Same Day Admit/Disch: HPI History of Present Illness Chief complaint: Chest Pain Narrative: Nati Jordan is a 45 year old female diabetes, obesity, hypothyroidism, with reported [place] in mother at in her 30s; who presents to the hospital with chief complaint of chest pain that began last night while bowling. Pain was described as central chest tightness cramping sensation that was nonradiating. It was associated with tingling of both sides of her neck and both shoulders as well as shortness of breath and dizziness. Symptoms lasted for about an hour and a half and improved with rest after arriving to the emergency room. Patient denies that she was given any treatment for her symptoms. She states that she has had recurrent episodes of chest tightness 0-2 times per week for many years. Additionally, she has had intermittent episodes of vertigo where she reports the room is spinning around her. Patient has an established PCP but has not addressed these matters with primary care physician. ROS + x intermittent constipation/diarrhea PMFSH Past Medical History Medical History (Updated 12/17/20 @ 16:24 by Hemalatha Mcfarland MD) COVID December 2019 Diabetes mellitus Fibromyalgia seen by a neurologist for her fibromyalgia and migraines Hypothyroidism Migraine Family History Family History (Updated 12/17/20 @ 11:42 by Ayleen Bryson MD) Mother Family history of diabetes mellitus in first degree relative Family history of heart disease in male family member before age 55 Patient states mother has had about 3 heart attacks, 1st 1 occurred in her 30s, has about 40% of her heart function. 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 Smoking status: Never smoker Tobacco type: cigarettes Second hand tobacco smoke exposure: Yes Alcohol intake: current Drinks per week: 4 Substance use: never Substance use type: does not use Gender identity (if verbalized by the patient): Female Sexual Orientation (if Verbalized by the Patient): Straight or Heterosexual Spiritual care concerns: No Same Day Admit/Disch: Med Pre-admit Medications Home Medications Medication Instructions Recorded Confirmed Type levothyroxine 200 mcg PO DAILY 10/13/19 12/17/20 History aspirin 325 mg PO DAILY #20 tablet 01/23/20 12/17/20 Rx glimepiride 2 mg PO BID 12/17/20 12/17/20 History metformin 500 mg PO BID 12/17/20 12/17/20 History Exam Const: General: cooperative and no acute distress Nutritional Appearance: obese Orientation/consciousness: oriented to person, oriented to place and oriented to time Limitations: no limitations HENMT: Head: normal to inspection and normocephalic Ears: hearing grossly normal bilaterally General nose exam: Normal external nose present Face and sinus: normal facial exam Mouth: Yes Normal oral and palatal mucosa present and Yes lip normal Eyes: General: appearance normal, both eyes and all related structures Neck: Neck: normal visual inspection, supple and no JVD Chest: Chest palpation & inspection: normal inspection of the chest Resp: Effort & Inspection: normal respiratory effort and able to speak in complete sentences Auscultation: clear to auscultation bilaterally Cardio: Jugular venous distension: no JVD Rate: regular rate Rhythm: regular rhythm GI: Inspection: normal to inspection, non-distended, Pannus present and obesity Skin: General skin exam: normal color and no rashes or lesions noted Neuro: General: oriented to person, oriented to place, oriented to time and patient oriented x3 Extrem: General: normal to inspection and full ROM Psych: Speech and movement: Normal speech and movement present Affect: Labile affect present Attitude: cooperative Thought process: Normal th
[2020-12-17 21:38] LABS: Cocaine Screen Urine Negative (Negative)
== END 2020-12-17 17:10 | disposition home or self-care (01) ==
LOC: ANHED 22:51 → ANHIMU 12-17 02:00
PROVIDERS: Emergency Medicine; Internal Medicine Cardiovascular Disease; Admitting Provider Internal Medicine; Emergency Provider Emergency Medicine; PCP Internal Medicine; Visit Provider Hospitalist
DX: R07.89 Other chest pain (principal); E11.9 Type 2 diabetes mellitus without complications; E03.9 Hypothyroidism, unspecified; E66.9 Obesity, unspecified; G43.909 Migraine, unspecified, not intractable, without status migrainosus; Z79.84 Long term (current) use of oral hypoglycemic drugs; Z86.16 Personal history of COVID-19; Z87.891 Personal history of nicotine dependence; Z68.41 Body mass index [BMI] 40.0-44.9, adult; Z79.899 Other long term (current) drug therapy
CPT/HCPCS: 36415; 71046; 78452; 80048; 80307; 82948; 83036; 84443; 84484; 85025; 85380; 85610; 85652; 85730; 93005; 93017; A9270; A9502; G0378

== ENCOUNTER 2021-03-05 16:28 | Outpatient (CLI) | payer BC, SELFPAY ==
--- NOTE | ~2021-03-05 | MM_ITS ---
EXAMINATION: MM screening jazmine BI w yarely HISTORY: Screening mammogram TECHNIQUE: Craniocaudal and mediolateral oblique 3-D tomosynthesis images were obtained and synthetic 2-D images were generated. CAD analysis was submitted and interpreted. COMPARISON: No prior mammogram is available for comparison at this institution. BREAST PARENCHYMAL COMPOSITION: There are scattered areas of fibroglandular density. FINDINGS: There is no evidence of suspicious mass, calcification, or architectural distortion to sugg est malignancy in either breast. There has been no suspicious interval change. IMPRESSION: 1. No mammographic evidence of malignancy. 2. Recommend routine screening mammography in one year. BI-RADS Category 1: Negative Reviewed, dictated and finalized at location A. 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
== END 2021-03-05 16:29 | disposition home or self-care (01) ==
LOC: ANHIMG 16:31
PROVIDERS: PCP Internal Medicine; Visit Provider Obstetrics & Gynecology
DX: Z12.31 Encounter for screening mammogram for malignant neoplasm of breast (principal)
CPT/HCPCS: 77063; 77067

== ENCOUNTER 2021-03-10 09:44 | Outpatient (CLI) | payer BC, SELFPAY ==
[2021-03-10 10:43] LABS: Influenza Control Valid (Valid); SARS-CoV-2 Ag Positive (Negative)
== END 2021-03-10 09:45 | disposition home or self-care (01) ==
LOC: CHSLAB 09:46
PROVIDERS: PCP Internal Medicine; Visit Provider Internal Medicine
DX: U07.1 COVID-19 (principal); J06.9 Acute upper respiratory infection, unspecified
CPT/HCPCS: 87426; 87804; C9803

== ENCOUNTER 2021-10-21 07:48 | Outpatient (CLI) | payer BC, SELFPAY ==
[2021-10-21 08:14] LABS: Basophils Absolute Auto 0.1 K/mm3 (0.0-0.1); Basophils Percent Auto 0.5 % (0.2-1.2); Eosinophils Absolute Auto 0.2 K/mm3 (0-0.3); Eosinophils Percent Auto 1.6 % (0-4.4); Hematocrit 41.2 % (37.0-47.0); Hemoglobin 13.6 g/dL (12.0-15.0); Immature Granulocyte Absolute 0.12 K/mm3 (0.00-0.031); Immature Granulocyte Percent A 1.3 % (0-0.5); Lymphocytes Absolute Auto 3.43 K/mm3 (0.9-3.2); Mean Corpuscular Hemoglobin 32.1 pg (26-34); Mean Corpuscular Volume 97.2 fl (80-100); Mean Platelet Volume 9.9 fl (7.4-10.4); Monocytes Absolute Auto 0.7 K/mm3 (0.1-0.6); Monocytes Percent Auto 7.2 % (2.6-8.5); Neutrophils Absolute Auto 5.1 K/mm3 (1.3-6.7); Neutrophils Percent Auto 53.4 % (45.5-73.1); Platelet Count Result 267 k/mm3 (150-375); Red Blood Count 4.24 M/mm3 (4.2-5.4); White Blood Count 9.5 K/mm3 (4.5-10.0)
[2021-10-21 08:25] LABS: Anion Gap 11 mmol/L (8-16); Blood Urea Nitrogen 10 mg/dL (7-17); Calcium 8.6 mg/dL (8.4-10.2); Carbon Dioxide 25 mmol/L (22-30); Chloride 103 mmol/L (98-107); Estimated Glomerular Filt Rate > 60; Glucose 129 mg/dL (65-110); Potassium 4.2 mmol/L (3.4-5.0); Sodium 139 mmol/L (137-145)
== END 2021-10-21 07:49 | disposition home or self-care (01) ==
LOC: ANHSURGERY 07:52
PROVIDERS: Anesthesiology; PCP Physician Assistant; Visit Provider Obstetrics & Gynecology
DX: N81.4 Uterovaginal prolapse, unspecified (principal); E11.9 Type 2 diabetes mellitus without complications; Z01.818 Encounter for other preprocedural examination
CPT/HCPCS: 36415; 80048; 85025; 86850; 86900; 86901

== ENCOUNTER 2021-10-24 01:38 | Day surgery (SDC) | payer BC, SELFPAY ==
[2021-10-20 13:47] VITALS: BMI 43.6
--- NOTE | 2021-10-20 13:56 | PC.NURSE ---
Report to the Outpatient Waiting Room, entrance under the green pavilion located off [facility], at time _0600_ on date _[id number]_. OR Time: _0730_. - You and your visitor will be asked to self-screen and do not enter if you have any COVID symptoms. - Only one visitor and NO children visitors are allowed at this time. - The patient visitor is requested to leave or wait in car when not with patient due to restrictions. - A mask is required within the hospital. Patients may have clear liquids (water, carbonated beverages, clear teas, apple juice) until 3 hours prior to surgery with a maximum of 20 ounces. - No food from midnight until time of surgery Take the following medications with a SIP of water the morning of surgery: ___Levothyroxine Medications to discontinue per physician None Date to take last dose No diabetic medicines day of surgery. Please no make-up, nail divehi, hairspray, perfume, deodorant, or body powder the day of surgery. No jewelry (including any body piercings) or valuables the day of surgery, leave them at home. Please take a shower or bath the night before, or the morning of, surgery with an antibacterial soap. Wear comfortable, loose fitting clothing. - Jewelry must be removed prior to entering the operating room. Rings and piercings that are not removed may be cut off. - The hospital will not accept responsibility for valuables. - Please leave all valuables, including medications, at home the day of surgery. If you are going home after surgery, a licensed dedicated truck driver must drive you home. - NO public transportation without another adult. - We recommend that an adult stay with you for 24 hours following discharge. - We also recommend that you do not drive, make important decision, drink alcoholic beverages, or take any drugs that were not prescribed by your health care provider for at least 24 hours after your discharge time. Follow any additional instructions given to you from your surgeon. If you or anyone in your household have experienced Covid symptoms in the past week, please notify your surgeon or the nurse liaison at the phone number below for possible testing. Telephone instructions given to _Patient___and asked if any additional questions and then verbalized understanding. Patient advised to call surgeon office or pre surgery nurse liaison [phone] if any additional questions.
--- NOTE | 2021-10-20 18:09 | PM.IMHP ---
H&P: HPI History of Present Illness Date/Time: 10/20/21 18:09 Chief Complaint: Uterine prolapse/dysmenorrhea/dyspareunia/Nexplanon Narrative: This 46-year-old female with enlarged uterus pelvic and prolapse and dyspareunia. She also have her Nexplanon removed. Risks and benefits reviewed including not exclusive of , aspiration pneumonia bleeding, transfusion, perforation injury to, bowel, bladder, ureters, or other internal organs with need for open laparotomy. She received the ACO[employer] handout entitled hysterectomy. She also received the to [facility] handout. She had all questions answered. She asked to proceed PMF Past Medical History Medical History COVID December 2019 Diabetes mellitus Fibromyalgia seen by a neurologist for her fibromyalgia and migraines Hypothyroidism Migraine Family History Family History Mother Family history of diabetes mellitus in first degree relative Family history of heart disease in male family member before age 55 Patient states mother has had about 3 heart attacks, 1st 1 occurred in her 30s, has about 40% of her heart function. 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 Smoking status: Never smoker Tobacco type: cigarettes Second hand tobacco smoke exposure: Yes Alcohol intake: current Drinks per week: 3 Substance use: never Substance use type: does not use Gender identity (if verbalized by the patient): Female Sexual Orientation (if Verbalized by the Patient): Straight or Heterosexual Spiritual care concerns: No Meds Home Medications and Allergies Home Medications Medication Instructions Recorded Confirmed Type levothyroxine 200 mcg tablet 200 mcg PO DAILY 10/13/19 10/20/21 History aspirin 81 mg chewable tablet 81 mg PO DAILY #30 tabs 12/17/20 10/20/21 Rx glimepiride 2 mg tablet 2 mg PO BID 12/17/20 10/20/21 History metformin 500 mg tablet,extended 500 mg PO BID 12/17/20 10/20/21 History release 24 hr naproxen sodium 220 mg tablet 220 mg PO BID PRN Pain 10/20/21 10/20/21 History (Aleve) semaglutide 0.25 mg or 0.5 mg (2 0.25 mg subcut WEEKLY 10/20/21 10/20/21 History mg/1.5 mL) subcutaneous pen injector (Ozempic) Allergies Allergy/AdvReac Type Severity Reaction Status Date / Time diphenhydramine Allergy Severe Palpitation Verified 10/20/21 13:44 s sumatriptan Allergy Severe Palpitation Verified 10/20/21 13:44 s adhesive tape Allergy Mild RASH Verified 10/20/21 13:44 Exam Const: General: cooperative, healthy appearing and comfortable Nutritional Appearance: average body habitus Orientation/consciousness: oriented to person, oriented to place and oriented to time Chest: Chest palpation & inspection: normal inspection of the chest Resp: Effort & Inspection: normal respiratory effort Cardio: Rate: regular rate Rhythm: regular rhythm GI: Inspection: normal to inspection : External Female Exam: normal external appearance Speculum Exam - Vagina: normal appearance of the vagina Speculum Exam - Cervix: normal appearance of the cervix Bimanual exam- vagina & uterus: enlarged and Uterus displaced (Second-degree prolapse present) Bimanual Exam- Adnexa, other: normal adnexae Assessment and Plan Assessment and plan (1) Uterine prolapse: Code(s): N81.4 - Uterovaginal prolapse, unspecified Status: Acute (2) Dysmenorrhea: Code(s): N94.6 - Dysmenorrhea, unspecified Status: Acute (3) Dyspareunia: Status: Acute Plan Robotic total hysterectomy with bilateral salpingectomy. The patient will also have the Nexplanon removed from her left arm
--- NOTE | 2021-10-23 11:34 | WPDANESEPPF ---
Anes - Initial Pre Proc Eval Procedure: Operation Date: 10/24/21 07:30 Proposed Procedures p Robotic Assisted Total Vaginal Hysterectomy with Bilateral Salpingectomy, Removal of Nexplanon Left Arm - Will White MD Date/Time: 10/23/21 11:34 Surgeon: Will White MD Pre Op Diagnosis: pelvic pain, dyspurenia, 2nd degree prolapse Patient Data Age: 46 Gender: F Height: 1.68 m Weight: 122.7 kg Allergies Allergy/AdvReac Type Severity Reaction Status Date / Time diphenhydramine Allergy Severe Palpitation Verified 10/24/21 06:18 s sumatriptan Allergy Severe Palpitation Verified 10/24/21 06:18 s adhesive tape Allergy Mild RASH Verified 10/24/21 06:18 Home Medications Medication Instructions Recorded Confirmed Type levothyroxine 200 mcg tablet 200 mcg PO DAILY 10/13/19 10/20/21 History aspirin 81 mg chewable tablet 81 mg PO DAILY #30 tabs 12/17/20 10/20/21 Rx glimepiride 2 mg tablet 2 mg PO BID 12/17/20 10/20/21 History metformin 500 mg tablet,extended 500 mg PO BID 12/17/20 10/20/21 History release 24 hr naproxen sodium 220 mg tablet 220 mg PO BID PRN Pain 10/20/21 10/20/21 History (Aleve) semaglutide 0.25 mg or 0.5 mg (2 0.25 mg subcut WEEKLY 10/20/21 10/20/21 History mg/1.5 mL) subcutaneous pen injector (Ozempic) hydrocodone 5 mg-acetaminophen 325 1 tablet PO Q4H PRN pain #30 tabs 10/24/21 Rx mg tablet Patient hx anesthesia problems: none Family hx anesthesia problems: none Results Review: All pre-operative results and documents have been reviewed as part of the pre-operative evaluation. PENDING SALE TO [facility] Past Medical History Medical History (Updated 10/23/21 @ 11:35 by Zay Santiago DO) COVID December 2019 Diabetes mellitus Fibromyalgia seen by a neurologist for her fibromyalgia and migraines History of heart attack mild during delivery of daughter Hypothyroidism Migraine Family History Family History Mother Family history of diabetes mellitus in first degree relative Family history of heart disease in male family member before age 55 Patient states mother has had about 3 heart attacks, 1st 1 occurred in her 30s, has about 40% of her heart function. 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 Smoking status: Never smoker Tobacco type: cigarettes Second hand tobacco smoke exposure: Yes Alcohol intake: current Drinks per week: 4 Substance use: never Substance use type: does not use Living arrangements: with family Gender identity (if verbalized by the patient): Female Sexual Orientation (if Verbalized by the Patient): Straight or Heterosexual Spiritual care concerns: No Anes - Eval Final PreProcedure Day of Procedure 10/23/21 11:34 Patient weight: morbidly obese Heart: regular rate and rhythm Lungs: clear to auscultation Airway: Mallampati scale class III Neurological: alert and oriented Last oral intake: >/= 8 hours ASA classification: III Emergent: no Anesthetic plan: proceed Anesthesia type and monitoring: general ETT and standard monitoring Results Review: All pre-operative results and documents have been reviewed as part of the pre-operative evaluation. Informed Consent: The patient's anesthetic plan and its attendant risks and benefits were discussed with the patient/family/POA. Questions were solicited and answers provided to the satisfaction of the patient/family/POA.
[2021-10-24] VITALS (10 sets, daily range): BP systolic 118–141; BP diastolic 66–85; PULSE 67–85; RESP 16–32; TEMP 36.2–37.3; O2SAT 93–100
--- NOTE | 2021-10-24 04:33 | WPDHPUPDATE1 ---
History and Physical Update Update Date/Time: 10/24/21 04:33 History and Physical has been reviewed, including an updated exam of the patient. There are NO changes in the patient's condition. Risks, benefits, and alternatives have been discussed and questions answered. Patient agrees to proceed with procedure.
[2021-10-24] MEDS: ACETAMINOPHEN 500 MG TABLET 1000 MG PO (06:47)
[2021-10-24] MEDS: LACTATED RINGERS 1,000 ML 30 ML IV CONT ×2 (06:47→09:01)
[2021-10-24] MEDS: KETOROLAC 15 MG/ML VIAL (*BKC) IV PUSH (06:47)
[2021-10-24 06:51] LABS: Glucose Point of Care 125 mg/dl (65-105)
[2021-10-24] MEDS: ceFAZolin 2 GM/D5W 50 ML 2 GM/50 ML BAG IVPB (07:25)
--- NOTE | 2021-10-24 08:56 | W.PM.PROC2 ---
Procedure Note - Detailed Date of Procedure 10/24/21 Pre-op Diagnosis pelvic pain, dyspurenia, 2nd degree prolapse Post-op Diagnosis Same Procedure Performed Robotic total vaginal hysterectomy bilateral salpingectomy/removal of Nexplanon Surgeon Will White MD Anesthesia General Indications 46-year-old bleeding prolapse. She also has a Nexplanon in which she wants removed. Findings Multiple adhesions throughout pelvis mildly uterus. Ovaries and tubes. Description of Procedure The patient prepped draped in sterile fashion placed in position. Under general tracheal anesthesia weighted was placed in posterior fornix vagina. Anterior lip of the cervix grasped with a single-tooth tenaculum and the uterus sounded to 10cm. Serial dilatation with fragmented dilators performed. This was followed by passage of the 8mm trocar. The downside visualized no injury seen. Gas reattached the patient placed in Trendelenburg. Right and left lateral quadrant incisions made 8mm trocars advanced under direct visualization assuring no injury. A right upper quadrant incision made the 8mm trocar advanced under direct visualization assuring no injury. The robot was docked. Attention was turned to the tariff counsel. The left round ligament was grasped, burned, cut. Anteriorly a bladder flap was formed by sharply dissecting the peritoneum and reflecting the bladder caudally this was done layer by layer a Service of firm scar tissue present. This was brought to the opposite round ligament was clamped, burned, cut. Next the left fallopian tube was sharply dissected using monopolar cautery and left attached to the uterine body to go with the specimen. In like fashion the right fallopian tube was dissected away from the ovary and left attached to the uterine origin a aguilar. The left cardinal and broad ligaments were then serially skeletonized. They were clamped, burned, cut hugging the uterus and cervix until the uterine vessels could be seen on the left. These were individually clamped, burned, cut. Next the cardinal and broad ligaments on the right were serially skeletonized clamping burning cutting hugging the uterus and cervix until the uterine vessels could be seen on the right. These were individually clamped, burned, cut. Blanching of the uterus was noted in a colpotomy incision made. Uterus cervix and tubes removed through the vagina. The vagina then closed with continuous running 0V lock from lateral edge to lateral edge back to the midline. Irrigation undertaken until clear. The pedicles were clear and the robot was undocked. The gas removed from the abdomen and the incisions and then closed with 4-0 Monocryl and glue. Attention was turned to the removal of the Nexplanon. Abdomen marked previously and a stab wound was made in the left antecubital area and it was the removed with mosquito forceps. This was then glued and wrapped with Coban. Blood loss for the entire procedure noted to be 25cc. All sponge, needle, instrument counts were correct. There were no immediate complications noted Estimated Blood Loss 25 Drains No Packing No Pathology Yes Complications No immediate complications Condition Stable Disposition PACU
[2021-10-24] MEDS: fentaNYL CITRATE INJ (*CRX) 100 MCG/2 ML VIAL 25 MCG IV PUSH ×2 (09:15→09:28)
[2021-10-24 09:24] LABS: Glucose Point of Care 171 mg/dl (65-105)
--- NOTE | 2021-10-24 10:08 | PC.NURSE ---
This patient, Nati Jordan, was received from PACU via bed on 10/24/21 at 1008. Patient/family oriented to unit policies and routines.
[2021-10-24] MEDS: DEXTROSE 5%/LACTATED RINGERS 1,000 ML 125 ML IV CONT (11:08)
[2021-10-24] MEDS: DOCUSATE SODIUM 100 MG CAPSULE PO ×2 (13:24→18:25)
[2021-10-24] MEDS: KETOROLAC 30 MG/ML VIAL (*BKC) IV PUSH (13:24)
[2021-10-24] MEDS: HYDROcodone/acetaminophen (*CRX) 10-325 MG TABLET 1 TAB PO ×2 (14:36→18:25)
[2021-10-24] MEDS: SIMETHICONE 80 MG TAB.CHEW PO ×2 (14:37→18:25)
--- NOTE | 2021-10-27 07:26 | PM.DS ---
DS: Admitting Diagnosis Discharge Date 10/24/21 Admitting Diagnosis Pelvic pain/uterine prolapse DS: Discharge Diagnosis Discharge Diagnosis (1) Dyspareunia: Status: Acute (2) Dysmenorrhea: Code(s): N94.6 - Dysmenorrhea, unspecified Status: Acute (3) Uterine prolapse: Code(s): N81.4 - Uterovaginal prolapse, unspecified Status: Acute DS: Summary Hospital Course Reason for hospitalization: Patient was admitted for robotic total vaginal hysterectomy and bilateral salpingectomy Hospital Course: Patient underwent robotic hysterectomy and bilateral salpingectomy in 10/24/2021. The procedure was unremarkable. She stated through the day and was able to void/eat/ambulate/in was general without complaints. Routine discharge instructions were given with her to follow-up in 2 weeks time Time Spent with Patient Time attestation: Total time spent providing and/or coordinating discharge services: DS: Data Data Completed and Pending Pending studies at discharge: Pending at discharge 10/24/21 08:36 Surgical [PTH] Routine Discharge Plan Discharge Patient Disposition: Home, Self-Care Patient Instructions: Laparoscopic Hysterectomy (DC) Stand Alone Forms: General Discharge Instructions Follow-up/Referrals: Will Collado MD [Physician] - Discharge Medications: New hydrocodone-acetaminophen 5-325 mg tablet 1 tablet PO Q4H PRN (Reason: pain) Qty: 30 0RF Continued metformin 500 mg tablet extended release 24 hr 500 mg PO BID glimepiride 2 mg tablet 2 mg PO BID aspirin 81 mg tablet,chewable 81 mg PO DAILY Qty: 30 0RF naproxen sodium [Aleve] 220 mg Tablet 220 mg PO BID PRN (Reason: Pain) Ozempic 0.25 mg or 0.5 mg(2 mg/1.5 mL) pen injector 0.25 mg SUBCUT WEEKLY Rx Instructions: Sundays levothyroxine [Euthyrox] 175 mcg tablet 175 mcg PO DAILY Label Comments: HAS NOT STARTED TAKING THIS DOSE
== END 2021-10-24 18:50 | disposition home or self-care (01) ==
LOC: ANHSURGERY 06:05 → ANHOB2 10:05
PROVIDERS: PCP Physician Assistant; Visit Provider Obstetrics & Gynecology
PROC: (CPT 58552; principal; 2021-10-24 07:30)
DX: N81.4 Uterovaginal prolapse, unspecified (principal); N94.6 Dysmenorrhea, unspecified; Z79.82 Long term (current) use of aspirin; E11.9 Type 2 diabetes mellitus without complications; E03.9 Hypothyroidism, unspecified; M79.7 Fibromyalgia; Z30.432 Encounter for removal of intrauterine contraceptive device
CPT/HCPCS: 58552; 11982; 82948; 88307; 99199; A9270; J0690; J1100; J1170; J1885; J2001; J2250; J2405; J2704; J2710; J3010; J7030; J7120; J7121

== ENCOUNTER 2021-11-20 16:36 | Emergency (ER) | payer BC, SELFPAY ==
[2021-11-20] VITALS (13 sets, daily range): BP systolic 115–134; BP diastolic 78–100; PULSE 81–100; RESP 18–20; TEMP 36.2; O2SAT 98–100
--- NOTE | ~2021-11-20 | CT_ITS ---
EXAMINATION: CT abdomen pelvis w con DATE: 11/20/2021 19:49 INDICATION: Diffuse abdominal pain for weeks post hysterectomy TECHNIQUE: Computed tomography (CT) of the abdomen and pelvis was performed with 100 cc Omnipaque 350 intravenous contrast. The dose-length product was 1686.96 mGy-cm. Automated exposure control and ite rative reconstruction technique were employed. COMPARISON: CT dated 01/22/2020. FINDINGS: Lung bases are unremarkable. Heart size normal. No significant pleural or pericardial effus ion. There are cholecystectomy clips. Fatty infiltration of the liver. The mild thoracolumbar spondyl osis. Pancreas, adrenal glands and kidneys are unremarkable. Nonobstructive bowel gas pattern. No sig nificant fluid or mass in the pelvis. No evidence for diverticulitis. No free air or free fluid. No s ignificant vascular abnormality. No lymphadenopathy. Mild splenomegaly. IMPRESSION: 1. No acute abdominal abnormality. Reviewed, dictated and finalized at location A.
[2021-11-20 17:12] LABS: Basophils Absolute Auto 0.1 K/mm3 (0.0-0.1); Basophils Percent Auto 0.7 % (0.2-1.2); Eosinophils Absolute Auto 0.2 K/mm3 (0-0.3); Eosinophils Percent Auto 1.8 % (0-4.4); Hematocrit 42.7 % (37.0-47.0); Hemoglobin 14.1 g/dL (12.0-15.0); Immature Granulocyte Absolute 0.06 K/mm3 (0.00-0.031); Immature Granulocyte Percent A 0.7 % (0-0.5); Lymphocytes Absolute Auto 3.68 K/mm3 (0.9-3.2); Lymphocytes Percent Auto 42.2 % (18.3-44.2); Mean Corpuscular Hemoglobin 31.3 pg (26-34); Mean Corpuscular Volume 94.9 fl (80-100); Mean Platelet Volume 9.8 fl (7.4-10.4); Monocytes Absolute Auto 0.7 K/mm3 (0.1-0.6); Monocytes Percent Auto 7.9 % (2.6-8.5); Neutrophils Absolute Auto 4.1 K/mm3 (1.3-6.7); Neutrophils Percent Auto 46.7 % (45.5-73.1); Platelet Count Result 243 k/mm3 (150-375); Red Cell Distribution Width 12.9 % (11.5-14.5); White Blood Count 8.7 K/mm3 (4.5-10.0)
[2021-11-20 17:33] LABS: Alanine Aminotransferase 61 U/L (6-35); Albumin Level 4.3 g/dL (3.5-5.1); Alkaline Phosphatase 138 U/L (38-126); Anion Gap 11 mmol/L (8-16); Aspartate Amino Transferase 50 U/L (14-36); Bilirubin,Total 1.7 mg/dL (0.2-1.3); Blood Urea Nitrogen 8 mg/dL (7-17); Carbon Dioxide 26 mmol/L (22-30); Chloride 100 mmol/L (98-107); Estimated CRCL calculation 99 ml/min; Estimated Glomerular Filt Rate > 60; Glucose 98 mg/dL (65-110); Lipase 72 U/L (23-300); Potassium 3.9 mmol/L (3.4-5.0); Sodium 137 mmol/L (137-145)
[2021-11-20 17:42] LABS: Appearance Urine Slightly Cloudy (Clear); Bilirubin Urine Negative (Negative); Color Urine Yellow (Yellow); Glucose Urine UA Negative (Negative); Ketones Urine Trace mg/dL (Negative); Leukocyte Esterase Ur 1+ LEU/UL (Negative); Nitrate Urine Negative (Negative); Protein Urine Negative (Negative); Urobilinogen Urine 0.2 mg/dL (<2.0); pH Urine 5.5 (5.0-9.0)
[2021-11-20 17:53] LABS: Add Urine Microscopic? YES; Blood Urine Trace-Intact (Negative)
[2021-11-20 17:57] LABS: Bacteria Urine Trace /hpf; Mucus Urine Few /lpf; Squamous Epithelial Cell Urine Many /hpf (Few)
[2021-11-20] MEDS: ONDANSETRON INJ 4 MG/2 ML VIAL IV PUSH (19:57)
[2021-11-20] MEDS: LACTATED RINGERS 1,000 ML 999 ML IV CONT (19:57)
--- NOTE | 2021-11-20 20:29 | ECG_ITS ---
Measurements Intervals [place] Rate: 72 P: -7 PA: 131 QRS: -7 QRSD: 84 T: -1 QT: 401 QTc: 442 Interpretive Statements SINUS RHYTHM LOW QRS VOLTAGE IN PRECORDIAL LEADS BORDERLINE ST-T WAVE ABNORMALITY- INFERIOR LEADS BASELINE ARTIFACT- I, III, AVR, AVL, AVF BORDERLINE ECG HEART RATE HAS DECREASED Electronically Signed On 11-20-2021 21:27:22 CDT by Nael Bowden D.O.
--- NOTE | 2021-11-20 20:30 | ED.ABDPAIN ---
HPI - Abdominal Pain General Chief Complaint: Abdominal Pain Stated Complaint: abd pain Time Seen by Provider: 11/20/21 19:19 History of Present Illness HPI narrative: Patient had a hysterectomy about 4 weeks ago, since then has been having constipation which did improve after her doctor started her on a stool softener, but now she mostly has diarrhea. Several days ago she started having a severe dull ache in her epigastric region associate with nausea and vomiting, no chest pain or difficulty breathing, her surgeon sent her to the ER to evaluate for SBO. She does have a remote history of peptic ulcer disease and she does also have history of diabetes. Related Data Home Medications Medication Instructions Recorded Confirmed glimepiride 2 mg tablet 2 mg PO BID 12/17/20 10/24/21 metformin 500 mg tablet,extended 500 mg PO BID 12/17/20 10/24/21 release 24 hr naproxen sodium 220 mg tablet 220 mg PO BID PRN Pain 10/20/21 10/20/21 (Aleve) semaglutide 0.25 mg or 0.5 mg (2 0.25 mg subcut WEEKLY 10/20/21 10/24/21 mg/1.5 mL) subcutaneous pen injector (Ozempic) levothyroxine 175 mcg tablet 175 mcg PO DAILY 10/24/21 10/24/21 (Euthyrox) Allergies Allergy/AdvReac Type Severity Reaction Status Date / Time diphenhydramine Allergy Severe Palpitation Verified 10/24/21 06:18 s sumatriptan Allergy Severe Palpitation Verified 10/24/21 06:18 s adhesive tape Allergy Mild RASH Verified 10/24/21 06:18 Review of Systems Review of Systems: CONST: No fever. HEENT: No sore throat C/V: No chest pain RESP: No cough GI: Reports abdominal pain, nausea, vomiting : No dysuria. M/S: No joint pain. SKIN: No rash. NEURO: [No headache or focal numbness or weakness] PSYCH: [No depression] [facility] Past Medical History Medical History (Updated 11/20/21 @ 20:34 by Valentina Lawson MD) COVID December 2019 Diabetes mellitus Fibromyalgia seen by a neurologist for her fibromyalgia and migraines History of heart attack mild during delivery of daughter Hypothyroidism Migraine Surgical History Surgical History (Updated 11/20/21 @ 20:34 by Valentina Lawson MD) H/O: hysterectomy Hx of cholecystectomy Family History Family History Mother Family history of diabetes mellitus in first degree relative Family history of heart disease in male family member before age 55 Patient states mother has had about 3 heart attacks, 1st 1 occurred in her 30s, has about 40% of her heart function. 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 Smoking status: Never smoker Tobacco type: cigarettes Second hand tobacco smoke exposure: Yes Alcohol intake: current Drinks per week: 4 Substance use: never Substance use type: does not use Gender identity (if verbalized by the patient): Female Sexual Orientation (if Verbalized by the Patient): Straight or Heterosexual Spiritual care concerns: No Exam Narrative: EXAMINATION OF ORGAN SYSTEMS/BODY AREAS: Constitutional: Vital signs per nursing GENERAL: Appears nauseous and uncomfortable HEAD: Normal with no signs of head trauma. EYES: EOMI, conjunctiva normal ENT: Hearing grossly intact LUNGS: Nonlabored breathing. HEART: [Regular rate and rhythm] ABD: [Soft], [tender to palpation] epigastric EXT: Normal range of motion SKIN: [No rashes or lesions.] NEURO: [Alert and oriented x 3. No gross focal sensory or strength deficits.] PSYCH: Normal affect Course Vital Signs Vital signs: Vital Signs Temperature 97.2 F L 11/20/21 17:11 Pulse Rate 100 11/20/21 17:11 Respiratory Rate 20 11/20/21 17:11 Blood Pressure 126/100 H 11/20/21 17:11 Pulse Oximetry 99 11/20/21 17:11 Oxygen Delivery Room Air 11/20/21 17:11
[2021-11-20] MEDS: FAMOTIDINE 20 MG/2 ML VIAL IV PUSH (21:05)
== END 2021-11-20 22:03 | disposition home or self-care (01) ==
PROVIDERS: Emergency Medicine; Emergency Provider Emergency Medicine; PCP Physician Assistant
DX: R10.13 Epigastric pain (principal); E11.9 Type 2 diabetes mellitus without complications; M79.7 Fibromyalgia; I25.2 Old myocardial infarction; E03.9 Hypothyroidism, unspecified; Z86.16 Personal history of COVID-19; Z79.84 Long term (current) use of oral hypoglycemic drugs; Z77.22 Contact with and (suspected) exposure to environmental tobacco smoke (acute) (chronic); R94.31 Abnormal electrocardiogram [ECG] [EKG]
CPT/HCPCS: 36415; 74177; 80053; 81001; 83690; 85025; 87086; 93005; 96361; 96374; 96375; 99284; J2405; J7120; Q9967

== ENCOUNTER 2021-12-15 12:01 | Outpatient (CLI) | payer BC, SELFPAY ==
[2021-12-15 13:01] LABS: Alanine Aminotransferase 66 U/L (6-35); Albumin Level 4.3 g/dL (3.5-5.1); Alkaline Phosphatase 116 U/L (38-126); Aspartate Amino Transferase 64 U/L (14-36); Bilirubin,Total 1.4 mg/dL (0.2-1.3); Lipase 105 U/L (23-300)
[2021-12-15 13:05] LABS: Prothrombin Time 13.1 Seconds (11.1-14.7)
[2021-12-15 13:15] LABS: Iron 72 ug/dL (37-170)
[2021-12-15 13:25] LABS: Percent Iron Saturation 22 % (20-50)
[2021-12-15 14:26] LABS: Hepatitis B Surface Antigen Negative (Negative)
[2021-12-15 14:32] LABS: HAV RESULT Negative (Negative); Hepatitis B Core IgM Result Negative (Negative)
[2021-12-15 14:43] LABS: Hepatitis B Surface Anti Res Negative; Hepatitis C Virus Antibody Negative (Negative)
[2021-12-17 11:02] LABS: Actin Antibody (IgG) <20 U (<20)
[2021-12-17 11:36] LABS: LKM 1 Antibody <=20.0 U (<=20.0)
[2021-12-17 14:33] LABS: GGT 22 U/L (3-55)
[2021-12-17 21:51] LABS: Ceruloplasmin 27 mg/dL (18-53)
[2021-12-18 18:22] LABS: Hepatitis A Antibody Total Nonreactive (Nonreactive)
[2021-12-19 08:42] LABS: Mitochondrial (M2) Ab (IgG) <=20.0 U (<=20.0)
[2021-12-19 15:30] LABS: Alpha Fetoprotein Tumor Marker 1.4 ng/mL (<6.1)
[2021-12-21 02:26] LABS: ALT 49 U/L (6-29); Alpha-2-Macroglobulin 175 mg/dL (106-279); Apolipoprotein A1 102 mg/dL (101-198); Fibrosis Stage F1; GGT 23 U/L (3-55); Haptoglobin 131 mg/dL (43-212); Necroinflammat Act Grade A0-A1; Total Bilirubin 1.2 mg/dL (0.2-1.2)
== END 2021-12-15 12:02 | disposition home or self-care (01) ==
LOC: ANHLAB 12:03
PROVIDERS: PCP Physician Assistant; Visit Provider Nurse Practitioner
DX: F10.10 Alcohol abuse, uncomplicated (principal); K76.0 Fatty (change of) liver, not elsewhere classified; R10.13 Epigastric pain; R74.01 Elevation of levels of liver transaminase levels
CPT/HCPCS: 36415; 80074; 80076; 81256; 81596; 82105; 82390; 82728; 82977; 83516; 83520; 83540; 83550; 83690; 85610; 86038; 86039; 86376; 86706; 86708

== ENCOUNTER 2022-01-16 01:20 | Day surgery (SDC) | payer BC, SELFPAY ==
[2022-01-06 10:47] VITALS: BMI 40.4
--- NOTE | 2022-01-16 10:13 | WPDANESEPPF ---
Anes - Initial Pre Proc Eval Procedure: Operation Date: 01/16/22 13:00 Proposed Procedures p Esophagogastroduodenoscopy & Colonoscopy - Man Newell MD Date/Time: 01/16/22 10:13 Surgeon: Man Newell MD Pre Op Diagnosis: epigastricpain,early satiety;change in bowel habit Patient Data Age: 46 Gender: F Height: 1.68 m Weight: 113.6 kg Allergies Allergy/AdvReac Type Severity Reaction Status Date / Time diphenhydramine Allergy Severe Palpitation Verified 01/16/22 11:47 s sumatriptan Allergy Severe Palpitation Verified 01/16/22 11:47 s adhesive tape Allergy Mild RASH Verified 01/16/22 11:47 Home Medications Medication Instructions Recorded Confirmed Type glimepiride 2 mg tablet 2 mg PO BID 12/17/20 01/06/22 History metformin 500 mg tablet,extended 500 mg PO BID 12/17/20 01/06/22 History release 24 hr levothyroxine 175 mcg tablet 175 mcg PO DAILY 10/24/21 01/06/22 History (Euthyrox) omeprazole 40 mg capsule,delayed 40 mg PO BID #60 caps 12/15/21 01/06/22 Rx release sucralfate 1 gram tablet (Carafate) 1 g PO ACHS #120 tabs 12/15/21 01/06/22 Rx Patient hx anesthesia problems: none Family hx anesthesia problems: none Results Review: All pre-operative results and documents have been reviewed as part of the pre-operative evaluation. [facility] Past Medical History Medical History (Updated 12/25/21 @ 08:38 by Lubna Jimenez APRN) Alcohol abuse Bloating Change in bowel habit Constipation COVID December 2019 Diabetes mellitus Early satiety Elevated ferritin Elevated transaminase level Epigastric abdominal pain Epigastric pain Fibromyalgia seen by a neurologist for her fibromyalgia and migraines Hepatic steatosis History of bleeding peptic ulcer History of heart attack mild during delivery of daughter Hx of colonic polyp Hypothyroidism Migraine Positive NORMA (antinuclear antibody) Surgical History Surgical History H/O: hysterectomy Hx of cholecystectomy Family History Family History Mother Family history of diabetes mellitus in first degree relative Family history of heart disease in male family member before age 55 Patient states mother has had about 3 heart attacks, 1st 1 occurred in her 30s, has about 40% of her heart function. 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 Smoking status: Never smoker Tobacco type: cigarettes Second hand tobacco smoke exposure: Yes Alcohol intake: current Drinks per week: 4 Substance use: never Substance use type: does not use Living arrangements: with family Gender identity (if verbalized by the patient): Female Sexual Orientation (if Verbalized by the Patient): Straight or Heterosexual Spiritual care concerns: No Anes - Eval Final PreProcedure Day of Procedure 01/16/22 10:13 Patient weight: morbidly obese Heart: regular rate and rhythm Lungs: clear to auscultation Airway: Mallampati scale class III Neurological: alert and oriented Last oral intake: >/= 8 hours ASA classification: III Emergent: no Anesthetic plan: proceed Anesthesia type and monitoring: general GIVS and standard monitoring Results Review: All pre-operative results and documents have been reviewed as part of the pre-operative evaluation. Informed Consent: The patient's anesthetic plan and its attendant risks and benefits were discussed with the patient/family/POA. Questions were solicited and answers provided to the satisfaction of the patient/family/POA.
[2022-01-16 11:49] VITALS: BP 126/89; PULSE 71; RESP 18; TEMP 36.1; O2SAT 100
[2022-01-16] MEDS: LACTATED RINGERS 1,000 ML 150 ML IV CONT (12:02)
[2022-01-16 12:04] LABS: Glucose Point of Care 110 mg/dl (65-105)
--- NOTE | 2022-01-16 12:39 | PM.HPGS ---
History of Present Illness History of Present Illness Consent: Risks, benefits, and alternatives have been discussed and questions answered. Patient agrees to proceed with procedure. Chief complaint: epigastricpain,early satiety;change in bowel habit Narrative: Nati Jordan is a 46 year old female with nausea and epigastric pain using omeprazole, CT scan negative for anything acute, also h/o DM, last colonoscopy 10 years ago Review of Systems Constitutional: Constitutional: Denies headache(s) and Denies weakness Eyes: Eyes: Denies blurry vision ENT: Reports Normal hearing present, Denies headache(s) and Denies neck pain Cardiovascular: Cardiovascular: Denies chest pain and Denies dyspnea Respiratory: Respiratory: Denies dyspnea Gastrointestinal: Gastrointestinal: Reports no additional gastrointestinal complaints Genitourinary: Genitourinary: Denies dysuria Musculoskeletal: Musculoskeletal: Denies neck pain Integumentary/Breasts: Skin/Breast: Denies dry skin Neurologic: Reports Normal hearing present, Denies headache(s) and Denies weakness Psychiatric: Psychiatric: Denies anxiety Endocrine: Endocrine: Denies change in body appearance Hematologic/Lymphatic: Hematologic/Lymphatic: Denies easy bleeding Allergic/Immunologic: Allergic/Immunologic: Denies urticaria PMFSH Past Medical History Medical History (Updated 01/16/22 @ 12:40 by Man Newell MD) Alcohol abuse Bloating Change in bowel habit Colon cancer screening Constipation COVID December 2019 Diabetes mellitus Early satiety Elevated ferritin Elevated transaminase level Epigastric abdominal pain Epigastric pain Fibromyalgia seen by a neurologist for her fibromyalgia and migraines Hepatic steatosis History of bleeding peptic ulcer History of heart attack mild during delivery of daughter Hx of colonic polyp Hypothyroidism Migraine Positive NORMA (antinuclear antibody) Surgical History Surgical History H/O: hysterectomy Hx of cholecystectomy Family History Family History Mother Family history of diabetes mellitus in first degree relative Family history of heart disease in male family member before age 55 Patient states mother has had about 3 heart attacks, 1st 1 occurred in her 30s, has about 40% of her heart function. 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 Smoking status: Never smoker Tobacco type: cigarettes Second hand tobacco smoke exposure: Yes Alcohol intake: current Drinks per week: 4 Substance use: never Substance use type: does not use Living arrangements: with family Gender identity (if verbalized by the patient): Female Sexual Orientation (if Verbalized by the Patient): Straight or Heterosexual Spiritual care concerns: No Meds Home Medications and Allergies Home Medications Medication Instructions Recorded Confirmed Type glimepiride 2 mg tablet 2 mg PO BID 12/17/20 01/06/22 History metformin 500 mg tablet,extended 500 mg PO BID 12/17/20 01/06/22 History release 24 hr levothyroxine 175 mcg tablet 175 mcg PO DAILY 10/24/21 01/06/22 History (Euthyrox) omeprazole 40 mg capsule,delayed 40 mg PO BID #60 caps 12/15/21 01/06/22 Rx release sucralfate 1 gram tablet (Carafate) 1 g PO ACHS #120 tabs 12/15/21 01/06/22 Rx Allergies Allergy/AdvReac Type Severity Reaction Status Date / Time diphenhydramine Allergy Severe Palpitation Verified 01/16/22 11:47 s sumatriptan Allergy Severe Palpitation Verified 01/16/22 11:47 s adhesive tape Allergy Mild RASH Verified 01/16/22 11:47 Vital Signs Vital Signs - 24 hr 01/16/22 11:49 Temperatu
[2022-01-16] MEDS: BENZOCAINE (*SP) 60 ML SPRAY CAN (HURRICAINE) 1 SPRAY MUCOUS MEM (12:43)
--- NOTE | 2022-01-16 12:52 | SUR.OPER ---
EGD: [id number] COLON: [id number]
[2022-01-16 13:02] VITALS: BP 103/57; PULSE 73; RESP 24; O2SAT 98
[2022-01-16 13:12] VITALS: BP 97/56; PULSE 66; RESP 21; O2SAT 100
[2022-01-16 13:22] VITALS: BP 104/60; PULSE 62; RESP 18; O2SAT 100
== END 2022-01-16 14:55 | disposition home or self-care (01) ==
PROVIDERS: PCP Physician Assistant; Visit Provider Internal Medicine Gastroenterology
PROC: 0DJ08ZZ Inspection of Upper Intestinal Tract, Via Natural or Artificial Opening Endoscopic (ICD-10-PCS; CPT 43235; principal; 2022-01-16 13:00)
DX: Z12.11 Encounter for screening for malignant neoplasm of colon (principal); D12.3 Benign neoplasm of transverse colon; K64.8 Other hemorrhoids; R11.0 Nausea; R10.13 Epigastric pain; E11.9 Type 2 diabetes mellitus without complications; E03.9 Hypothyroidism, unspecified; M79.7 Fibromyalgia; K76.0 Fatty (change of) liver, not elsewhere classified; I25.2 Old myocardial infarction; Z87.11 Personal history of peptic ulcer disease; E66.01 Morbid (severe) obesity due to excess calories; Z68.39 Body mass index [BMI] 39.0-39.9, adult; Z79.84 Long term (current) use of oral hypoglycemic drugs
CPT/HCPCS: 45385; 43239; 82948; 88305; J2704; J7120

== ENCOUNTER 2022-02-03 08:14 | Outpatient (CLI) | payer BC, SELFPAY ==
--- NOTE | ~2022-02-03 | NM_ITS ---
EXAM: NM gastric emptying study DATE: 02/03/2022 13:02 INDICATION: Nausea TECHNIQUE: A gastric emptying study was performed using the methodology of Noman SALCIDO, et al. J Nucl Med 2007; 48:568-572. The patient was given a meal consisting of 2 scrambled eggs labeled with 0.937 mCi Tc-99m sulfur colloid, 2 slices of toast, two packages of jam, and approximately 120 mL of water . Simultaneous anterior and posterior 1-min images of the abdomen were obtained with the patient supi ne at multiple time points over a total period of 4 hours. The geometric mean of anterior and posteri or views was determined, and the percentage retention was calculated for each time point. COMPARISON: None. FINDINGS: Gastric retention of the radiotracer-labeled meal was 79%, 52%, and 10% at the 1-hour, 2-hour, and 4- hour time points, respectively. With this technique, apparent rapid gastric emptying is suggested by <30% gastric retention at 1 hour. Delayed gastric emptying is defined by gastric retention of >90% at 1 hour, >60% retention at 2 hours, or >10% retention at 4 hours. IMPRESSION: 1. Normal gastric emptying. Reviewed, dictated and finalized at location A. FRYER ASSEMBLER IMPRESSION: 1. Normal gastric emptying.
== END 2022-02-03 08:15 | disposition home or self-care (01) ==
PROVIDERS: PCP Physician Assistant; Visit Provider Internal Medicine Gastroenterology
DX: R10.13 Epigastric pain (principal); R14.0 Abdominal distension (gaseous)
CPT/HCPCS: 78264; A9541

== ENCOUNTER 2022-05-08 09:05 | Outpatient (CLI) | payer BC, SELFPAY ==
--- NOTE | ~2022-05-08 | XR_ITS ---
XR foot LT standing 2V DATE: 05/08/2022 09:43 INDICATION: Osteoarthritis TECHNIQUE: AP and lateral weightbearing views of left foot COMPARISON: None FINDINGS: Mild osteoarthritis at the tibiotalar joint. There is prominent plantar and posterior calca sravanthi enthesopathy without associated erosive change or periostitis. No fracture or dislocation, periosteal reaction or bone destruction. IMPRESSION: Mild tibiotalar osteoarthritis Prominent plantar and posterior calcaneal enthesopathy Reviewed, dictated and finalized at location B. IC FLOOR LAYER
--- NOTE | ~2022-05-08 | XR_ITS ---
AP and oblique views of bilateral SI joints CLINICAL HISTORY: Osteoarthritis FINDINGS: There is probable mild osteoarthritic change of the right SI joint. Left SI joint are unrem arkable. No sclerosis or evidence for inflammatory arthropathy/erosive change. Bilateral hip joints a re preserved. Soft tissues are unremarkable. IMPRESSION: Mild degenerative change of the right SI joint. Reviewed, dictated and finalized at location . L WEIGHER
--- NOTE | ~2022-05-08 | XR_ITS ---
Lumbosacral Spine: AP and lateral views Clinical History: Pain Findings: The normal lordotic curve is maintained. The vertebral bodies and posterior elements are i ntact. There is mild degenerative disc narrowing at L5-S1. Remaining disc spaces are preserved. The sacroiliac joints are normally outlined. Impression: Degenerative disc narrowing at L5-S1. Reviewed, dictated and finalized at [facility]. ING MACHINE OPERATOR Impression: Degenerative disc narrowing at L5-S1.
--- NOTE | ~2022-05-08 | XR_ITS ---
EXAMINATION: XR foot RT standing 2V DATE: 05/08/2022 09:43 INDICATION: Unspecified osteoarthritis, unspecified site. TECHNIQUE: 2 views of right foot with weightbearing were obtained. COMPARISON: None. FINDINGS: There is mild hallux valgus. There is mild osteoarthritis of first metatarsophalangeal join t, talonavicular joint, and some of the interphalangeal joints. There are enthesophytes at the short range air defense artillery ior and plantar aspects of calcaneal tuberosity. IMPRESSION: 1. Mild hallux valgus. 2. Mild polyarticular osteoarthritis. Reviewed, dictated and finalized at location A. ENGINEER
--- NOTE | ~2022-05-08 | XR_ITS ---
Bilateral Hands Technique: Bilateral PA, oblique, and lateral views, and ball-catcher's view were obtained. Clinical History: Osteoarthritis Findings: No acute fracture or dislocation is seen. Osseous alignment is anatomic. Joint spaces are p reserved. Soft tissues are unremarkable. Impression: Unremarkable bilateral hand radiographs. Reviewed, dictated and finalized at location . DEVELOPER Impression: Unremarkable bilateral hand radiographs.
[2022-05-08 10:06] LABS: Hematocrit 40.6 % (37.0-47.0); Hemoglobin 13.7 g/dL (12.0-15.0); Mean Corpuscular HGB Conc 33.7 g/dl (32-36); Mean Corpuscular Hemoglobin 32.1 pg (26-34); Mean Corpuscular Volume 95.1 fl (80-100); Mean Platelet Volume 9.5 fl (7.4-10.4); Platelet Count Result 244 k/mm3 (150-375); Red Blood Count 4.27 M/mm3 (4.2-5.4); Red Cell Distribution Width 12.5 % (11.5-14.5); White Blood Count 8.9 K/mm3 (4.5-10.0)
[2022-05-08 10:30] LABS: Alanine Aminotransferase 43 U/L (6-35); Albumin Level 4.1 g/dL (3.5-5.1); Alkaline Phosphatase 176 U/L (38-126); Anion Gap 5 mmol/L (8-16); Aspartate Amino Transferase 42 U/L (14-36); Blood Urea Nitrogen 9 mg/dL (7-17); Calcium 8.6 mg/dL (8.4-10.2); Carbon Dioxide 29 mmol/L (22-30); Chloride 104 mmol/L (98-107); Creatine Kinase 67 U/L (30-135); Estimated Glomerular Filt Rate > 60; Glucose 99 mg/dL (65-110); Potassium 3.8 mmol/L (3.4-5.0); Sodium 138 mmol/L (137-145)
[2022-05-08 10:32] LABS: Complement C3 130 mg/dL (88-165); Rheumatoid Factor < 8.6 IU/ML (<12)
[2022-05-08 10:57] LABS: Vitamin D 25 Hydroxy 44.9 ng/mL
[2022-05-08 11:41] LABS: Erythrocyte Sedimentation Rate 49 mm/hr (0-20)
[2022-05-12 09:33] LABS: SM Antibody <1.0; SM/RNP Antibody <1.0; SS-A <1.0; SS-B <1.0
[2022-05-13 04:13] LABS: Aldolase 4.7 U/L (<=8.1)
[2022-05-13 12:30] LABS: Lupus dRVVT Screen 39 sec (<=45); PTT-LA Screen 31 sec (<=40)
[2022-05-13 21:39] LABS: Anti Cyclic Citrullinated Pept <16 Units (<20)
== END 2022-05-08 09:06 | disposition home or self-care (01) ==
LOC: ANHIMG 09:08
PROVIDERS: PCP Physician Assistant; Visit Provider Internal Medicine
DX: M19.90 Unspecified osteoarthritis, unspecified site (principal); M20.11 Hallux valgus (acquired), right foot; M19.071 Primary osteoarthritis, right ankle and foot; M53.3 Sacrococcygeal disorders, not elsewhere classified; M19.072 Primary osteoarthritis, left ankle and foot
CPT/HCPCS: 36415; 72100; 72202; 73130; 73620; 80053; 82085; 82306; 82550; 85027; 85613; 85652; 85730; 86160; 86200; 86225; 86235; 86430

== ENCOUNTER 2022-06-10 09:00 | Outpatient (CLI) | payer BC, SELFPAY ==
[2022-06-10 14:28] LABS: Hematocrit 41.6 % (37.0-47.0); Hemoglobin 14.1 g/dL (12.0-15.0); Mean Corpuscular HGB Conc 33.9 g/dl (32-36); Mean Corpuscular Hemoglobin 32.3 pg (26-34); Mean Corpuscular Volume 95.4 fl (80-100); Mean Platelet Volume 9.6 fl (7.4-10.4); Platelet Count Result 296 k/mm3 (150-375); Red Blood Count 4.36 M/mm3 (4.2-5.4); Red Cell Distribution Width 13.3 % (11.5-14.5); White Blood Count 12.5 K/mm3 (4.5-10.0)
[2022-06-10 14:38] LABS: Alanine Aminotransferase 56 U/L (6-35); Albumin Level 4.2 g/dL (3.5-5.1); Alkaline Phosphatase 156 U/L (38-126); Aspartate Amino Transferase 72 U/L (14-36); Bilirubin,Total 1.4 mg/dL (0.2-1.3)
[2022-06-10 14:41] LABS: Prothrombin Time 12.5 Seconds (11.1-14.7)
[2022-06-10 14:49] LABS: Iron 97 ug/dL (37-170)
[2022-06-10 14:59] LABS: Percent Iron Saturation 26 % (20-50)
== END 2022-06-10 09:01 | disposition home or self-care (01) ==
LOC: ANHLAB 14:08
PROVIDERS: PCP Physician Assistant; Visit Provider Nurse Practitioner
DX: R74.01 Elevation of levels of liver transaminase levels (principal); R79.89 Other specified abnormal findings of blood chemistry; Z68.41 Body mass index [BMI] 40.0-44.9, adult; E66.01 Morbid (severe) obesity due to excess calories; K76.0 Fatty (change of) liver, not elsewhere classified
CPT/HCPCS: 36415; 80076; 82728; 83540; 83550; 85027; 85610

== ENCOUNTER 2022-08-31 17:01 | Emergency (ER) | payer BC, SELFPAY ==
[2022-08-31 17:06] VITALS: BP 129/67; PULSE 84; RESP 16; TEMP 36.4; O2SAT 100
--- NOTE | 2022-08-31 17:10 | ED.CHESTPAIN ---
HPI - Chest Pain General Chief Complaint: Chest Pain Stated Complaint: CHEST PAIN/SOB Time Seen by Provider: 08/31/22 17:15 Mode of arrival: ambulatory Limitations: no limitations History of Present Illness HPI narrative: 47-year-old female presents with concern for chest heaviness. She reports symptoms started yesterday morning. She reports she went to the emergency room at [facility] and had a workup there with negative findings. She reports they did a chest x-ray, EKG, blood work. She reports ?they ruled out a heart attack.? She denies cough, shortness of breath. She denies nausea, vomiting. She reports symptoms are made worse when she moves her upper body. She reports she has been under very much stress recently. She does not have a history of anxiety or panic attacks. She had history of depression many years ago, she is not currently medicated for depression. She read denies rash, bruising. She denies injury to her chest. complaint: chest heaviness Related Data Home Medications Medication Instructions Recorded Confirmed glimepiride 2 mg tablet 2 mg PO BID 12/17/20 07/07/22 metformin 500 mg tablet,extended 500 mg PO BID 12/17/20 07/07/22 release 24 hr levothyroxine 175 mcg tablet 175 mcg PO DAILY 10/24/21 07/07/22 (Euthyrox) Allergies Allergy/AdvReac Type Severity Reaction Status Date / Time diphenhydramine Allergy Severe Palpitation Verified 07/28/22 14:19 s sumatriptan Allergy Severe Palpitation Verified 07/28/22 14:19 s adhesive tape Allergy Mild RASH Verified 07/28/22 14:19 Review of Systems Review of Systems: CONSTITUTIONAL: Denies malaise, chills, sweats, or fever. ENT: Denies rhinorrhea, congestion, sinus pain, otalgia or sore throat. CARDIOVASCULAR: Reports chest heaviness. Denies palpitations or edema. RESPIRATORY: Denies cough or dyspnea. GASTROINTESTINAL: Denies abdominal pain, nausea, vomiting, diarrhea SKIN: Denies rash or itching. MUSCULOSKELETAL: Denies joint pain or myalgia. NEUROLOGIC: Denies numbness, weakness, or headache. PSYCHIATRIC: Reports stress All systems reviewed & are unremarkable except as noted in HPI and below PMFSH Past Medical History Medical History Alcohol abuse Bloating Change in bowel habit Colon cancer screening Constipation Counseling on health promotion and disease prevention COVID December 2019 Diabetes mellitus Early satiety Elevated ferritin Elevated transaminase level Encounter for medication management Epigastric abdominal pain Epigastric pain Fibromyalgia seen by a neurologist for her fibromyalgia and migraines Hepatic steatosis History of bleeding peptic ulcer History of heart attack mild during delivery of daughter Hx of colonic polyp Hypothyroidism Inflammatory arthritis Migraine Positive NORMA (antinuclear antibody) Surgical History Surgical History H/O: hysterectomy Hx of cholecystectomy Family History Family History Mother Family history of diabetes mellitus in first degree relative Family history of heart disease in male family member before age 55 Patient states mother has had about 3 heart attacks, 1st 1 occurred in her 30s, has about 40% of her heart function. 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 Smoking status: Never smoker Tobacco type: cigarettes Second hand tobacco smoke exposure: Yes Alcohol intake: current Drinks per week: 3 Substance use: never Substance use type: does not use Living arrangements: with family Gender identity (if verbalized by the patient): Female Sexual Orientation (if Verbalized by the Patient):
[2022-08-31] MEDS: LIDOCAINE HCL 2% VISC SOLN 15 ML UDC PO (17:29)
[2022-08-31] MEDS: MAG HYDROX/AL HYDROX/SIMETH 30 ML UDC 15 ML PO (17:30)
== END 2022-08-31 17:54 | disposition home or self-care (01) ==
PROVIDERS: Emergency Provider Nurse Practitioner; PCP Physician Assistant
DX: R07.89 Other chest pain (principal); E11.9 Type 2 diabetes mellitus without complications; M79.7 Fibromyalgia; K76.0 Fatty (change of) liver, not elsewhere classified; I25.2 Old myocardial infarction; E03.9 Hypothyroidism, unspecified; M13.80 Other specified arthritis, unspecified site; Z86.16 Personal history of COVID-19; Z79.84 Long term (current) use of oral hypoglycemic drugs
CPT/HCPCS: 99213; A9270; G0463

== ENCOUNTER 2022-11-08 18:36 | Emergency (ER) | payer MEDICAID, SELFPAY ==
[2022-11-08] VITALS (21 sets, daily range): BP systolic 96–127; BP diastolic 65–103; PULSE 67–87; RESP 9–28; TEMP 36.6–37.1; O2SAT 97–100
--- NOTE | ~2022-11-08 | CT_ITS ---
EXAMINATION: CTA chest PE protocol DATE: 11/08/2022 20:15 INDICATION: well's criteria 4.5 hx pe chest pain soa TECHNIQUE: Computed tomography angiography (CTA) of the chest was performed with 100 mL Omnipaque-350 intravenous contrast timed to evaluate the pulmonary arteries. Coronal maximum intensity projection 3D-reconstructions were created by the technologist. The dose-length product (DLP) was 821.39 mGy-cm. Automated exposure control and iterative reconstruction technique were employed. COMPARISON: 01/22/2020. FINDINGS: Lung parenchyma and airways: Dependent atelectasis. Pleura: Unremarkable. Thoracic inlet, axillae and chest wall: Unremarkable. Thoracic aorta: Normal. Mediastinum: Normal. Heart and pericardium: Normal. Coronary artery calcifications: Absent. Upper abdomen: No significant finding. Bones: No acute osseous finding. Pulmonary arteries: Study quality: Adequate. No pulmonary emboli detected. IMPRESSION: No CT evidence of acute pulmonary embolus. Reviewed, dictated and finalized at location K.
--- NOTE | 2022-11-08 18:44 | ED.GENADULT ---
HPI - General Adult General Chief complaint: Shortness of Breath/Dyspnea Stated complaint: shortness of breath Time Seen by Provider: 11/08/22 18:44 Source: patient Mode of arrival: ambulatory Limitations: no limitations History of Present Illness HPI narrative: 47-year-old white female history of anxiety and PE years ago complains of shortness of breath for last 2 days and chest tightness started about an hour ago and back tightness rates as a 4/10 in severity she has dyspnea on exertion she took some Aleve for this. She is out of her p.r.n. anxiety medicine. She was seen chest pain to her 3 months ago another emergency department thought to be okay thought to be an anxiety attack. Denies any Cough fever sore throat runny nose or problems walking talking seeing or hearing voiding stooling eating or drinking bleeding or bruising swelling lumps or bumps dizziness or lightheadedness or any other complaints. Past medical history mitral valve abnormality anxiety depression hysterectomy for precancer history of PE. Related Data Home Medications Medication Instructions Recorded Confirmed glimepiride 2 mg tablet 2 mg PO BID 12/17/20 11/08/22 metformin 500 mg tablet,extended 500 mg PO BID 12/17/20 11/08/22 release 24 hr levothyroxine 175 mcg tablet 175 mcg PO DAILY 10/24/21 11/08/22 (Euthyrox) Allergies Allergy/AdvReac Type Severity Reaction Status Date / Time diphenhydramine Allergy Severe Palpitation Verified 07/28/22 14:19 s sumatriptan Allergy Severe Palpitation Verified 07/28/22 14:19 s adhesive tape Allergy Mild RASH Verified 07/28/22 14:19 Review of Systems Review of Systems: All systems reviewed & are unremarkable except as noted in HPI and below PMFSH Past Medical History Medical History Alcohol abuse Bloating Change in bowel habit Colon cancer screening Constipation Counseling on health promotion and disease prevention COVID December 2019 Diabetes mellitus Early satiety Elevated ferritin Elevated transaminase level Encounter for medication management Epigastric abdominal pain Epigastric pain Fibromyalgia seen by a neurologist for her fibromyalgia and migraines Hepatic steatosis History of bleeding peptic ulcer History of heart attack mild during delivery of daughter Hx of colonic polyp Hypothyroidism Inflammatory arthritis Migraine Positive NORMA (antinuclear antibody) Surgical History Surgical History H/O: hysterectomy Hx of cholecystectomy Family History Family History Mother Family history of diabetes mellitus in first degree relative Family history of heart disease in male family member before age 55 Patient states mother has had about 3 heart attacks, 1st 1 occurred in her 30s, has about 40% of her heart function. 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 Smoking status: Never smoker Tobacco type: cigarettes Second hand tobacco smoke exposure: Yes Alcohol intake: current Drinks per week: 3 Substance use: never Substance use type: does not use Living arrangements: with family Gender identity (if verbalized by the patient): Female Sexual Orientation (if Verbalized by the Patient): Straight or Heterosexual Spiritual care concerns: No Exam Narrative: White obese Female patient moderate distress distress.? Head normocephalic, atraumatic.? Eyes conjunctiva pink sclera nonicteric.? Extraocular movements are intact.? Ears externally normal.? Oropharynx is clear with moist mucous membranes without exudates.? Neck is supple nontender no lymphadenopathy.? Back is nontender.? Leticia
--- NOTE | 2022-11-08 18:50 | ECG_ITS ---
Measurements Intervals [place] Rate: 69 P: 24 OK: 141 QRS: -4 QRSD: 93 T: 18 QT: 400 QTc: 430 Interpretive Statements SINUS RHYTHM LOW QRS VOLTAGE IN PRECORDIAL LEADS BORDERLINE ECG COMPARED TO ECG 11/20/2021 21:05:02 NO SIGNIFICANT CHANGES Electronically Signed On 11-08-2022 19:49:24 CDT by Nael Bowden D.O.
--- NOTE | 2022-11-08 19:06 | PC.NURSE ---
report to edwin hunt , all questions answered.
[2022-11-08] MEDS: ASPIRIN 81 MG CHEWABLE TABLET 324 MG PO (19:22)
[2022-11-08] MEDS: LORazepam INJ (*CRX) 2 MG/ML VIAL 1 MG IV PUSH (19:22)
[2022-11-08 19:27] LABS: Basophils Absolute Auto 0.06 K/mm3 (0.00-0.10); Basophils Percent Auto 0.7 % (0.0-1.0); Eosinophils Percent Auto 2.2 % (1.0-6.0); Hematocrit 37.1 % (35.0-49.0); Hemoglobin 12.6 g/dL (12.0-15.0); Immature Granulocyte Absolute 0.11 K/mm3 (0.00-0.00); Immature Granulocyte Percent A 1.2 % (0.0-0.0); Lymphocytes Percent Auto 41.2 % (18.0-42.0); Mean Corpuscular Hemoglobin 32.5 pg (27.0-31.0); Mean Corpuscular Volume 95.6 fL (78.0-102.0); Mean Platelet Volume 10.2 fl (9.2-11.8); Monocytes Absolute Auto 0.57 K/mm3 (0.10-0.90); Monocytes Percent Auto 6.3 % (2.0-11.0); Neutrophils Absolute Auto 4.4 K/mm3 (1.7-7.2); Neutrophils Percent Auto 48.4 % (50.0-70.0); Platelet Count Result 229 K/mm3 (150-420); Red Blood Count 3.88 M/mm3 (4.20-5.40); Red Cell Distribution Width 13.1 % (11.6-14.4)
[2022-11-08 19:43] LABS: D Dimer 0.19 mg/L (0.19-0.50); INR 0.9; Partial Thromboplastin Time 24.1 SEC (23.90-30.70); Prothrombin Time 10.3 Seconds (9.50-12.10)
[2022-11-08 19:53] LABS: Alanine Aminotransferase 22 U/L (14-59); Alkaline Phosphatase 155 U/L (46-116); Anion Gap 5 mmol/L (8-16); Aspartate Amino Transferase 14 U/L (15-37); Bilirubin,Total 0.8 mg/dL (0.00-1.00); Blood Urea Nitrogen 10 mg/dL (7-18); Calcium 8.5 mg/dL (8.5-10.1); Carbon Dioxide 28 mmol/L (21-32); Chloride 103 mmol/L (98-108); Estimated CRCL calculation 88 ml/min; Estimated Glomerular Filt Rate > 60; Glucose 188 mg/dL (70-99); Magnesium 1.6 mg/dL (1.8-2.4); NT Pro B Type Natriuretic Pept 276 pg/mL (0-125); Osmolality Calculated 286 mOsm/kg (285-295); Potassium 3.6 mmol/L (3.5-5.1); Sodium 136 mmol/L (136-145); Thyroid Stimulating Hormone 1.87 uIU/mL (0.36-3.74); Total Protein 6.8 g/dL (6.4-8.2)
[2022-11-08 19:54] LABS: Troponin I < 4.0 ng/L (0.00-60.4)
--- NOTE | 2022-11-08 21:04 | PC.NURSE ---
Pt resting, call millan at side, no distress noted.
--- NOTE | 2022-11-08 21:46 | PC.NURSE ---
Pt sleeping, awakens easily, VSS. Monitor shows NSR. Call millan at side.
--- NOTE | 2022-11-08 23:01 | PC.NURSE ---
Pt awake, states feeling some better and was able to close her eyes to rest a while. Pt wanting to go home to take care of her sick . VSS. Pt states she is out of her anxiety medication. ERP informed.
== END 2022-11-08 23:22 | disposition home or self-care (01) ==
PROVIDERS: Emergency Provider Emergency Medicine; PCP Physician Assistant
DX: E83.42 Hypomagnesemia (principal); F41.0 Panic disorder [episodic paroxysmal anxiety]; R07.89 Other chest pain; E11.9 Type 2 diabetes mellitus without complications; E03.9 Hypothyroidism, unspecified; I25.2 Old myocardial infarction; Z79.84 Long term (current) use of oral hypoglycemic drugs
CPT/HCPCS: 36415; 71275; 80053; 83735; 83880; 84443; 84484; 85025; 85380; 85610; 85730; 93005; 96374; 99284; A9270; J2060; Q9967

== ENCOUNTER 2022-11-26 09:42 | Outpatient (CLI) | payer MEDICAID, SELFPAY ==
--- NOTE | ~2022-11-26 | US_ITS ---
US abdomen limited INDICATION: Fatty infiltration of the liver. PROCEDURE: Realtime right upper abdominal ultrasound. COMPARISON: No prior studies for comparison. FINDINGS: The pancreas is normal without focal mass or pancreatic ductal dilation. Liver echotexture is normal without focal mass or intrahepatic biliary dilatation. There is normal directional flow i n the portal vein. Gallbladder is surgically absent. Common bile duct measures 5 mm. No sonographic Peoples's sign. IMPRESSION: 1: Normal limited abdominal ultrasound postcholecystectomy. Reviewed, dictated and finalized at location L.
== END 2022-11-26 09:43 | disposition home or self-care (01) ==
PROVIDERS: PCP Physician Assistant; Visit Provider Nurse Practitioner
DX: K76.0 Fatty (change of) liver, not elsewhere classified (principal)
CPT/HCPCS: 76705

== ENCOUNTER 2024-01-07 13:57 | Outpatient (CLI) | payer OTHER, SELFPAY ==
--- NOTE | ~2024-01-07 | XR_ITS ---
EXAM: XR lumbar spine 2-3V DATE: 01/07/2024 14:09 HISTORY: chronic Low back pain right side worse last couple weeks . COMPARISON: 05/08/2022. FINDINGS: Cholecystectomy clips. 5 nonrib-bearing lumbar-type vertebral bodies. Pedicles intact. Norm al vertebral body alignment. Vertebral body heights preserved. Moderate disc space narrowing at L5-S1 . Mild multilevel marginal osteophytosis. Mild lower lumbar facet sclerosis. No fracture or dislocati on. IMPRESSION: Multilevel degenerative disc disease, moderate at L5-S1. Mild lower lumbar facet arthropa thy. Reviewed, dictated and finalized at location K. ENT RELATIONS SPECIALIST IMPRESSION: Multilevel degenerative disc disease, moderate at L5-S1. Mild lower lumbar facet arthropathy.
== END 2024-01-07 13:58 | disposition home or self-care (01) ==
LOC: GOSHIMG 13:58
PROVIDERS: PCP Physician Assistant; Visit Provider Physician Assistant
DX: M51.379 Other intervertebral disc degeneration, lumbosacral region without mention of lumbar back pain or lower extremity pain (principal)
CPT/HCPCS: 72100

== ENCOUNTER 2024-04-11 12:40 | Outpatient (CLI) | payer OTHER, MEDICAID, SELFPAY ==
--- NOTE | ~2024-04-11 | MR_ITS ---
EXAMINATION: MR cervical spine wo con DATE: 04/11/2024 13:51 INDICATION: Neck pain. TECHNIQUE: Magnetic resonance imaging (MRI) of the cervical spine was performed without intravenous c ontrast. COMPARISON: None FINDINGS: There is 8 degrees dextrocurvature of cervical spine. There is kyphosis of cervical spine. Vertebral body heights are normal. Intervertebral disc heights are normal. The spinal cord signal int ensity is normal. The following disc levels are specifically discussed: C2-C3: The disc does not extend beyond the endplate margin. There is no uncovertebral joint osteoarth ritis. There is mild bilateral facet joint osteoarthritis. There is no neural foraminal stenosis. The re is no central canal stenosis. C3-C4: The disc does not extend beyond the endplate margin. There is mild bilateral uncovertebral toro nt osteoarthritis. There is mild right and moderate left facet joint osteoarthritis. There is no neur al foraminal stenosis. There is no central canal stenosis. C4-C5: The disc does not extend beyond the endplate margin. There is mild bilateral uncovertebral toro nt osteoarthritis. There is mild bilateral facet joint osteoarthritis. There is no neural foraminal s tenosis. There is no central canal stenosis. C5-C6: The disc is bulging. There is mild bilateral uncovertebral joint osteoarthritis. There is mild bilateral facet joint osteoarthritis. There is no neural foraminal stenosis. There is mild central c anal stenosis. C6-C7: The disc does not extend beyond the endplate margin. There is no uncovertebral joint osteoarth ritis. There is no facet joint osteoarthritis. There is no neural foraminal stenosis. There is no ritika tral canal stenosis. C7-T1: The disc does not extend beyond the endplate margin. There is no uncovertebral joint osteoarth ritis. There is severe bilateral facet joint osteoarthritis. There is mild right neural foraminal adis nosis. There is no central canal stenosis. IMPRESSION: 1. Mild cervical spondylosis. Reviewed, dictated and finalized at location A. STILE COLLECTOR
--- NOTE | ~2024-04-11 | MR_ITS ---
EXAMINATION: MR thoracic spine wo con DATE: 04/11/2024 13:51 INDICATION: Low back pain TECHNIQUE: Magnetic resonance imaging (MRI) of the thoracic spine was performed without intravenous c ontrast. Sagittal localizer T1-weighted FSE of the cervicothoracic spine was obtained. Thoracic spine sequences included sagittal T2-weighted FSE, sagittal T1-weighted SE, Sagittal T2-weighted FS FSE, a nd axial T2-weighted FSE. COMPARISON: None FINDINGS: 8 degree upper thoracic dextrocurvature and 8 degrees lower thoracic levocurvature. Sagittal alignmen t is normal. Vertebral body heights are normal. Normal marrow signal. Mild disc height loss at T4-T5 through T6-T7 and at T12-L1. Small right paracentral disc protrusion results in mild central canal st enosis at T5-T6. There is a larger left paracentral disc protrusion also resulting in mild central ca nal stenosis at T12-L1. Remaining discs do not extend beyond the endplate margins with no central can al stenosis. There is normal spinal cord signal. The conus terminates at L1. There is multilevel mode rate upper thoracic and mild mid and lower thoracic facet osteoarthritis. No significant neural doug inal stenosis. IMPRESSION: 1. Moderate S-shaped curvature of the thoracic spine with mild spondylosis. Reviewed, dictated and finalized at location A. ICAL RN
--- NOTE | ~2024-04-11 | MR_ITS ---
EXAMINATION: MR lumbar spine wo con DATE: 04/11/2024 13:59 INDICATION: Low back pain. TECHNIQUE: Magnetic resonance imaging (MRI) of the lumbar spine was performed without intravenous con trast. Sequences included sagittal T2-weighted FSE, sagittal T2-weighted FS FSE, sagittal T1-weighted FSE, and axial T2-weighted FSE. COMPARISON: Lumbar spine radiographs 01/07/2024 FINDINGS: Alignment is normal. There is mild chronic anterior wedging of T12 and L1 vertebral bodies. Intervertebral disc heights are normal. The distal spinal cord signal intensity is normal. The conus medullaris is at L1. The following disc levels are specifically discussed: L1-L2: The disc does not extend beyond the endplate margin. There is mild bilateral facet joint osteo arthritis. There is no neural foraminal stenosis. There is no central canal stenosis. L2-L3: The disc does not extend beyond the endplate margin. There is mild bilateral facet joint osteo arthritis. There is no neural foraminal stenosis. There is no central canal stenosis. L3-L4: The disc does not extend beyond the endplate margin. There is severe bilateral facet joint ost eoarthritis. There is no neural foraminal stenosis. There is no central canal stenosis. L4-L5: The disc is bulging. There is severe bilateral facet joint osteoarthritis. There is mild bilat eral neural foraminal stenosis. There is no central canal stenosis. L5-S1: The disc is bulging. There is moderate bilateral facet joint osteoarthritis. There is mild lef t neural foraminal stenosis. There is mild central canal stenosis. IMPRESSION: 1. Mild lumbar spondylosis. Reviewed, dictated and finalized at location A. LOAD TRUCK DRIVER IMPRESSION: 1. Mild lumbar spondylosis.
--- OUTSIDE RECORDS SUMMARY | 2024-04-11 13:27 | XMS_ITS | Encounter Summary ---
Author Organization [facility] Address [address] [place] [id number] Care Team Providers Care Assistant Store Manager Sales Name Role Phone Durga Johnson MD Primary Care Provider Mega Stubbs Primary Care Provider [phone] Encounter Details Date Type Department Care Team (Late st Contact Info) Description 08/06/2018 Abstract [facility] CONVERSION [address] [place] [address] , Generic Conversion, Social History Tobacco Use Types Packs/Day Years Used Date Smoking Tobacco: Never Assessed Comments Unknown Sex and Gender Information Value Date Recorded Sex Assigned at Not on file Legal Sex Female 10:25 PM CDT Gender Identity Not on file Sexual Orientation Not on file documented as of this encounter Plan of Treatment Not on file documented as of this encounter Visit Diagnoses Not on filedocumented in this encounter Care Teams Assistant Store Manager Sales Relationship Specialty Start Date End Date Durga Johnson MD [address] [place] [phone] PCP - General FAMILY PRACTICE 10/27/21 11/04/21 Mega Stubbs PA [address] [place] [phone] PCP - General PHYSICIAN FLOOR SUPERVISOR 11/05/21 documented as of this encounter
--- OUTSIDE RECORDS SUMMARY | 2024-04-11 13:27 | XMS_ITS | Referral Summary ---
[facility] Organization [facility] Address [address] [place] [phone] Care Team Providers Care Statement Processor Name Role Phone Mega Stubbs Primary Care Provider Allergies Active Allergy Reactions Criticality Noted Date Comments Diphenhydramine Hypotension High 05/04/2019 Diphenhydramine Sumatriptan Hypotension High 05/04/2019 Sumatriptan Medications fluconazole (DIFLUCAN) 150 mg tabletIndicatio ns:Vulvar irritation Take 1 tablet (150 mg total) by mouth every 7 days 12 tablet 4 0 Active medroxyPROGESTE Jer 150 mg/mL injection TAKE TO OFFICE FOR INJECTION 0 Active metFORMIN (GLUCOPHAGE) 500 mg tablet Take 500 mg by mouth 2 (two) times a day with meals Active Active Problems Problem Noted Date Diagnosed Date Pelvic pain in female 05/09/2019 Breakthrough bleeding on Depo-Provera 05/09/2019 Type 2 diabetes mellitus 08/18/2014 Thyroid activity decreased 04/07/2013 Morbid obesity 04/07/2013 Fibrositis 02/17/2013 Overview (06/03/2016): Fibromyalgia Migraine 01/15/2012 Overview (06/04/2016): Chronic migraine Social History Tobacco Use Types Packs/Day Years Used Date Smoking Tobacco: Never Alcohol Use Standard Drinks/Week Comments Yes 0 (1 standard drink = 0.6 oz pur e alcohol) AUDIT-C Answer Date Recorded Q1: How often do you have a drink containing alc ohol? Monthly or less 05/04/2019 Average Number of Drinks Not on file 020 Frequency of Binge Drinking Not on file 06/2019 Personal Safety Answer Date Recorded Have you ever been in or are you currently in a harmful physical or emotional relationship or is someone making you feel afraid or unsafe? Denies 08/30/2022 Comments No Sex and Gender Information Value Date Recorded Sex Assigned at Not on file Legal Sex Female 2:10 AM DESIGN CHIEF Gender Identity Not on file Sexual Orientation Not on file Last Filed Vital Signs Vital Sign Reading Time Taken Comments Blood Pressure 108/86 08/30/2022 5:00 PM CDT Pulse 75 08/30/2022 5:00 PM CDT Temperature 36.6 C (97.8 F) 08/30/2022 2:17 PM CDT Respiratory Rate 16 08/30/2022 5:00 PM CDT Oxygen Saturation 95% 08/30/2022 5:00 PM CDT Inhaled Oxygen Concentration - - Weight 117.9 kg (260 lb) 08/30/2022 2:17 PM CDT Height 167.6 cm (5' 6 ) 08/30/2022 2:17 PM CDT Body Mass Index 41.97 08/30/2022 2:17 PM CDT Plan of Treatment Not on file Procedures Procedure Name Priority Date/Time Associated Diagnosis Comments EGFR STAT 08/30/2022 2:39 PM CDT HEMOGLOBIN A1C Routine 02/20/2016 7:34 AM DESIGN CHIEF LIPID PANEL Routine 03/13/2015 7:49 AM DESIGN CHIEF COLONOSCOPY 12/30/2010 12:00 AM CDT from Last 3 Months or Most Recently Relevant to Health Maintenance Results * eGFR (08/30/2022 2:39 PM CDT) eGFR 89 mL/min/1. 73 m2 ELHAM DANG (SACHA) Comment: Interpretive Data Reference Interval Normal >/= 90 mL/min/1.73m2 Mildly decreased* 60 - 89 mL/min/1.73m2 Mildly to moderately decreased 45 - 59 mL/min/1.73m2 Moderately to severely decreased 30 - 44 mL/min/1.73m2 Severely decreased 15 - 29 mL/min/1.73m2 Kidney Failure < 15 mL/min/1.73m2 *Relative to young adult level Estimated glomerular filtration rate is determined by the 2020 CKD-EPI equation recommended by the National Kidney Foundation (A Unifying Approach to GFR Estimation: Recommendations of the NKF-ASK Task Force on Reassessing the Inclusion of Race in Diagnosing Kidney Disease, JASN 2020). The CKD-EPI equation should not be used for patients with unstable renal function and has not been validated in children and those over 70. Current interpretive data was last reviewed 2020. Blood 08/30/2022 2:39 PM CDT 08/30/2022 2:43 PM CDT us Jarad Benson MD LAB BLOOD ORDERABLES Fi nal Result [facility] [address] [place] [address] Department of Laboratories [place] [id number] * Hemoglobin A1c (02/20/2016 7:34 AM DESIGN CHIEF) [facility] Hemoglobin A1c % 5.8 4.8 - 5.9 % 02/20/2016 2:30 PM DESIGN CHIEF [facility] HISTORICAL RESULTS Comment: [place] [employer] recommends that the goal of therapy should be an A1C hemoglobin of <7%. Reevaluate the treatment regimen in patients with an A1C >8%. 02/20/2016 7:34 AM DESIGN CHIEF 02/20/2016 8:37 AM DESIGN CHIEF us Michelle Medina MD LAB BLOOD ORDERABLE S Final Result Performing Organization Address City/[facility]/ZIP Co de Phone Number [facility] HISTORICAL RESULTS * (ABNORMAL) Lipid panel (03/13/2015 7:49 AM DESIGN CHIEF) Pathologist [facility] Triglycerides 143 0 - 199 mg/dL Comment:12 hr pc highly jacque mmended for Triglyceride Cholesterol 113 0 - 199 mg/dL Comment: Borderline: 200-239 High Risk: >239 HDL Cholesterol 26(L) 40 - 60 mg/dL Comment: Major Risk < 40 mg/dL Moderate Risk 40-60 mg/dL Negative Risk > 60 mg/dL LDL Cholesterol, Calc 58 0 - 130 mg/dL Comment:High Risk > 159 mg/d L Cholesterol/HDL Ratio 4.3 Comment: Cholesterol / HDL Ratio 3.5:1 or less is desirable. Cholesterol / HDL Ratio greater than 5:1 is considered higher risk for developing heart disease. 03/13/2015 7:49 AM DESIGN CHIEF 03/13/2015 8:18 AM DESIGN CHIEF us Michelle Medina MD LAB BLOOD ORDERABLE S Final Result [facility] HISTORICAL RESULTS * COLONOSCOPY (12/30/2010 12:00 AM CDT) Anatomical Region Laterality Modality Other Narrative 12/30/2010 12:00 AM CDT Ordered by an unspecified provider. Procedure Note Provider, MD Bita - 12/30/2010 12:00 AM CDT PROCEDURE REPORT Patient: TRENA MCCARTY Account: [id number] Room No: : 1975 Patient Type: [facility] Attend.: Jenae Ford M.D. Admit Date: 12/30/2010 Dict.: Jenae Ford M.D. Disch. Date:12/30/2010 NAME OF PROCEDURE: Colonoscopy with cold biopsy. DATE OF PROCEDURE: 12/30/2010 INDICATION: Chronic diarrhea. PRIMARY CARE PHYSICIAN: Dr. Morgan So BRIEF HISTORY AND PHYSICAL: The patient is a 35-year-old white femalewith chronic diarrhea for the last few months. No blood in the stool, noweight loss. No specific etiology has been identified. Colonoscopy is beingdone for evaluation. Her grandfather had a history of colon cancer. Herfather had a history of colitis. PROCEDURE: Sedation was provided by the anesthesia service. The procedure of colonoscopy, including indications and possible complicationsof bleeding, infection, and perforation requiring surgery, were discussedwith the patient and consent was obtained. Rectal examination prior to colonoscopy was unremarkable. The scope was introduced in the rectumand advanced all the way to the cecum which was identified by the ileocecalvalve and appendiceal orifice. The terminal ileum was intubated and appeared normal. The cecum, ascending colon, transverse colon, and descendingcolon were normal. In the sigmoid colon, there was a 3 mm polyp removed bycold biopsy forceps. The rectum was normal. Retroflex view in the rectumwas normal. Random biopsies were performed to rule out microscopiccolitis. IMPRESSION: 1. One small 3 mm polyp in the sigmoid colon, removed by cold biopsy forceps. 2. Otherwise unremarkable colonoscopy. RECOMMENDATIONS: 1) Follow up pathology report, 2) symptomatictreatment for the diarrhea. Tunde Mobley/destiney TD: 12/30/2010 13:42 CC: Morgan So M.D. PROCEDURE REPORT Authenticated by Jenae Ford MD On 01/05/2011 05:36:36 PM Historical Provider ENDOSCOPY PROCEDURES Minoo l Result from Last 3 Months or Most Recently Relevant to Health Maintenance Insurance [employer] [facility] [place] Care Teams Statement Processor Relationship Specialty Start Date End Date Mega Stubbs PA [address] [place] [phone] PCP - General Physician Fire Fighter [employer] 08/30/22
--- OUTSIDE RECORDS SUMMARY | 2024-04-11 13:27 | XMS_ITS | Clinical Summary ---
Author Organization [facility] Address [address] [place] [phone] Care Team Providers Care Mannequin Mold Maker Name Role Phone Mega Stubbs Primary Care [...] Fibromyalgia Migraine 01/15/2012 Overview (06/04/2016): Chronic migraine Surgical History Surgery Date Site/Laterality Comments [place] CHOLECYSTECTOM[place] Cholecystectomy - (Added by TW Conv) [place] TONSILLECTOM[place] PRIMARY/SEC ONDARY <AGE 12 Tonsillectomy - (Added by TW Conv) CHOLECYSTECTOMY TONSILECTOMY, ADENOIDECTOMY, BILATERAL MYRINGOTOMY AND TUBES Medical History Medical History Date Comments Peptic ulcer Peptic ulcer dis ease Disorder of thyroid Thyroid dise ase Hx Other Medical Headache, migra ine Personal history of other di seases of the musculoskeletal system and connective tissue Personal history of fibromya lgia - (Added by TW Conv) Personal history of other sp ecified conditions History of sleep disturbance - (Added by TW Conv) Personal history of other di seases of the nervous system and sense organs History of migraine - (Added by TW Conv) Generalized anxiety disorder Gen eralized anxiety disorder - (Added by TW Conv) Type II diabetes mellitus (HCC) Hypothyroidism Anxiety Family History Medical History Relation Name Comments Cancer Father Cancer; /Family history of malignant neoplasm - (Added by TW Conv) Migraines Father Migraine; Cancer Mother Cancer; /Family history of malignant neoplasm - (Added by TW Conv) Diabetes Mother Diabetes mellit us; /Family history of diabetes mellitus - (Added by TW Conv) Heart failure Mother Family history of congestive heart failure - (Added by TW Conv) Hypertension Mother Hypertension; / Family history of hypertension - (Added by TW Conv) Diabetes Other 1 Family history of Diabetes mellitus; Hypertension Other 2 Family history of Hypertension; Migraines Other 3 Family history of Migraine; Cancer Other 4 Family history of malignant neoplasm - Relation: Aunt (Added by TW Conv) Hypothyroidism Paternal Grandmother Famil y history of hypothyroidism - (Added by TW Conv) Breast cancer Neg Hx Relation Name Status Comments Father Mother Other 1 Other 2 Other 3 Other 4 Paternal Grandmother Social History Tobacco Use Types Packs/Day Years [...] on file Legal Sex Female 2:10 AM POST OFFICE MANAGER Gender Identity Not on file Sexual Orientation Not on file Obstetrics History Para Term AB IAB SAB Ectopic Multiple Livin g Live Births 3 2 0 0 1 0 1 0 Date Outcome GA Total Labor Labor/2nd/3rd Weight Sex Type Anes PTL Queta A1 A5 Name Clin Para Para SAB Last Filed Vital Signs Vital Sign Reading [...] 08/30/2022 2:17 PM CDT Plan of Treatment Health Maintenance Due Date Last Done Comments Albumin Creatinine Ratio, Urine 1975 Breast Cancer Screening-Mammogram 1975 Cervical Cancer Screening 1975 Depression Screening 1975 Hepatitis C Screening 1975 Dilated Eye Exam 1975 Foot Exam 1975 Pneumococcal vaccine <65 (1 of 2 - PCV) 06/23/1981 DTaP/Tdap/Td Vaccine (1 - Tdap) 06/23/1986 Hepatitis B Screening 06/23/1993 Regular Well Visit/Exam 18-64 06/23/1993 Lipid Panel 03/13/2016 03/13/2015, 11/29/2014 Hemoglobin A1C 08/20/2016 02/20/2016, 03/01, 11/29/2014 Colon Cancer Screening-Colonoscopy 12/30/20202010 eGFR 08/31/2023 08/30/2022 Influenza Vaccine (#1) 2023 Procedures Procedure Name Priority Date/Time Associated Diagnosis Comments EGFR STAT 08/30/2022 2:39 PM CDT HEMOGLOBIN A1C Routine 02/20/2016 7:34 AM POST OFFICE MANAGER LIPID PANEL Routine 03/13/2015 7:49 AM POST OFFICE MANAGER COLONOSCOPY 12/30/2010 12:00 AM CDT from Last [...] LAB BLOOD ORDERABLES Fi nal Result ELHAM DANG (SACHA) [facility] Department [place] [address] * Hemoglobin A1c (02/20/2016 7:34 AM POST OFFICE MANAGER) Hemoglobin A1c % 5.8 4.8 - 5.9 % 02/20/2016 2:30 PM POST OFFICE MANAGER [facility] HISTORICAL RESULTS Comment: [place] [employer] recommends that the goal of therapy should be an A1C hemoglobin of <7%. Reevaluate the treatment regimen in patients with an A1C >8%. 02/20/2016 7:34 AM POST OFFICE MANAGER 02/20/2016 8:37 AM POST OFFICE MANAGER us Michelle Medina MD LAB BLOOD ORDERABLE S Final Result Performing Organization Address [facility] Co de Phone Number [facility] Bulu Box [facility] HISTORICAL RESULTS * (ABNORMAL) Lipid panel (03/13/2015 7:49 AM POST OFFICE MANAGER) Triglycerides 143 0 - 199 mg/dL Comment:12 hr pc highly jacque mmended for Triglyceride Cholesterol 113 0 - 199 mg/dL Comment: Borderline: 200-239 High Risk: >239 HDL Cholesterol 26(L) 40 - 60 mg/dL Comment: Major Risk < 40 mg/dL Moderate Risk 40-60 mg/dL Negative Risk > 60 mg/dL LDL Cholesterol, Calc 58 0 - 130 mg/dL 03/13/2015 1:31 PM [facility] Bul[employer] Box [facility] HISTORICAL RESULTS Comment:High Risk > 159 mg/d L Cholesterol/HDL Ratio 4.3 Comment: Cholesterol / HDL Ratio 3.5:1 or less is desirable. Cholesterol / HDL Ratio greater than 5:1 is considered higher risk for developing heart disease. 03/13/2015 7:49 AM POST OFFICE MANAGER 03/13/2015 8:18 AM POST OFFICE MANAGER us Michelle Medina MD LAB BLOOD ORDERABLE S Final Result Performing Organization Address [facility]/ZIP Co de Phone Number [facility] Bul[employer] Box [facility] HISTORICAL RESULTS * COLONOSCOPY (12/30/2010 12:00 AM CDT) Anatomical Region Laterality Modality Other Narrative 12/30/2010 12:00 AM CDT Ordered by an unspecified provider. Procedure Note ProviderBita MD - 12/30/2010 12:00 AM CDT PROCEDURE REPORT Patient: TRENA MCCARTY Account: [id number] Room No: : 1975 Patient Type: SDS Attend.: Jenae Ford M.D. Admit Date: 12/30/2010 [...] Jenae Ford MD On 01/05/2011 05:36:36 PM us Historical Provider ENDOSCOPY PROCEDURES Minoo l Result from Last 3 Months or Most Recently Relevant to Health Maintenance [place] Care Teams Mannequin Mold Maker Relationship Specialty Start Date End Date Mega Stubbs PA [address] [place] [phone] PCP - General Physician System Support Administrator 08/30/22
--- OUTSIDE RECORDS SUMMARY | 2024-04-11 13:27 | XMS_ITS | Clinical Summary ---
Author Organization [facility] Address [address] [place] [id number] Care Team Providers Care Terminal Clerk Name Role Phone Mega Stubbs Primary Care Provider [phone] Social History Tobacco Use Types Packs/Day Years Used Date Smoking Tobacco: Never Assessed Comments Unknown Sex and Gender Information Value Date Recorded Sex Assigned at Not on file Legal Sex Female 10:25 PM CDT Gender Identity Not on file Sexual Orientation Not on file Plan of Treatment Health Maintenance Due Date Last Done Comments Cervical Cancer Screening Pa p Smear (Age 30 to 64) Every 3 Years 1975 Colorectal Cancer Screening Colonoscopy (10 Years) 1975 Annual Physical 06/23/1978 Hepatitis C 06/23/1993 DTaP, Tdap and Td Vaccines ( 1 - Tdap) 06/23/1994 Hepatitis B Vaccines (1 of 3 - 19+ 3-dose series) 06/23/1994 Cervical Cancer Screening Pa p with HPV Testing (Age 30 to 64) Every 5 Years 06/23/2005 Cervical Cancer Screening with HPV 06/23/2005 Mammogram Screening 2015 COVID-19 Vaccine (2023-2 5 season) 2023 Influenza Adult (#1) 2023 Meningococcal B Vaccine Aged Out No l onger eligible based on patient's age to complete this topic Meningococcal Vaccine Aged Out No susan karime eligible based on patient's age to complete this topic Pneumococcal Vaccine: Pediat rics (0 to 5 Years) and At-Risk Patients (6 to 64 Years) Aged Out No longer eligible b ased on patient's age to complete this topic RSV Immunizations Under 20 Months Aged Out No longer eligible based on patient's age to complete this topic Insurance [facility] MEDICAID Care Teams Terminal Clerk Relationship Specialty Start Date End Date Mega Stubbs PA [address] [place] [phone] PCP - General PHYSICIAN T[place]NER [place] 11/05/21
== END 2024-04-11 12:41 | disposition home or self-care (01) ==
PROVIDERS: PCP Physician Assistant; Visit Provider Physician Assistant
DX: M47.892 Other spondylosis, cervical region (principal); M47.894 Other spondylosis, thoracic region; M47.896 Other spondylosis, lumbar region
CPT/HCPCS: 72141; 72146; 72148